=== PATIENT | male | born 1945 | race Caucasian/White ===

== ENCOUNTER 2017-09-30 23:46 | Inpatient (IN) | payer OTHER, MEDICARE ==
[~2017-09-30] VITALS: Ht 172.7 cm; Wt 94.0 kg
[~2017-09-30 23:46] MED LIST: ALLO100T PO; ALPR-304 PO; BUPR100T16 PO; CALC-7 PO; CELE-193 PO; CHOL2000 PO; CLOP75TA35 PO; FURO40TA4 PO; GLUC-183 PO; HYDR-569 PO; LOP25T PO; METH-603 PO; NIAC500T81 PO; NORCO10T PO; OSC500T PO; PANT40TA39 PO; POTA10TA15 PO; PSYL0.524 PO; TRAZ-91 PO; [UNRECOGNIZED DRUG - CODE] PO
[2017-10-01 02:05] LABS: CLARITY,URINE Clear (Clear); COLOR,URINE Yellow (Yellow); GLUCOSE, URINE Negative (Neg); KETONES,URINE Negative (Neg); LEUKOCYTE ESTERASE ,URINE Negative (Neg); NITRITES, URINE Negative (Neg); OCCULT BLOOD,URINE Small (Neg); PROTEIN,URINE Negative (Neg); UROBILINOGEN,URINE 0.2 E.U/dL (0.2-1.0)
[2017-10-01 02:11] LABS: BACTERIA,URINE NONE SEEN /HPF (Neg); SQUAMOUS EPITHELIAL CELL,UR FEW /LPF (FEW); UA COLLECTION TYPE STRAIGHT CATH; WBC,URINE NONE SEEN /HPF (0-4)
[2017-10-01 02:16] LABS: HEMOGLOBIN 14.5 g/dl (14.0-17.9); MONOCYTES # (AUTO) 0.7 X10'3 (0-0.9); RED CELL DISTRIBUTION WIDTH 13.4 % (11.5-14.5)
[2017-10-01 02:19] LABS: PARTIAL THROMBOPLASTIN TIME 25 SECONDS (22-32); PROTHROMBIN TIME 10.6 SECONDS (9.0-12.0)
[2017-10-01 02:22] LABS: ALANINE AMINOTRANSFERASE 47 U/L (12-78); ALBUMIN 3.6 G/DL (3.4-5.0); ALBUMIN/GLOBULIN RATIO 1.1 (1.1-1.5); ALKALINE PHOSPHATASE 73 IU/L (46-116); ANION GAP 8 (8-16); ASPARTATE AMINO TRANSFERASE 43 U/L (10-37); BILIRUBIN,TOTAL 0.7 MG/DL (0.1-1.0); BLOOD UREA NITROGEN 11 MG/DL (7-18); BUN/CREATININE RATIO 13.3 (5.4-32.0); CALCIUM 9.3 MG/DL (8.5-10.1); CHLORIDE 110 MMOL/L (99-107); CREATININE 0.83 MG/DL (0.60-1.10); GLUCOSE 146 MG/DL (70-104); MAGNESIUM 1.7 MG/DL (1.5-2.4); PHOSPHORUS 1.9 MG/DL (2.3-4.5); POTASSIUM 3.6 MMOL/L (3.5-5.1); SODIUM 147 MMOL/L (135-145); TOTAL CARBON DIOXIDE 28.9 MMOL/L (24-32); TOTAL PROTEIN 6.9 G/DL (6.4-8.2); eGFR > 90 ML/MIN
[2017-10-01 02:25] LABS: ACETAMINOPHEN < 2.0 UG/ML (10-30)
[2017-10-01 02:29] LABS: BASOPHILS # (AUTO) 0.1 X10'3 (0-0.2); BASOPHILS % (AUTO) 0.8 % (0-1); EOSINOPHILS % (AUTO) 0.1 % (0-6); HEMATOCRIT 43.3 % (42.0-52.0); LYMPHOCYTES # (AUTO) 0.6 X10'3 (1.1-4.8); MEAN CORPUSCULAR HEMOGLOBIN 33.8 PG (27.0-31.0); MEAN CORPUSCULAR HGB CONC 33.4 % (33.0-36.5); MEAN CORPUSCULAR VOLUME 101.2 FL (78-98); MEAN PLATELET VOLUME 8.1 FL (7.4-10.4); MONOCYTES % (AUTO) 5.7 % (2-12); NEUTROPHILS # (AUTO) 11.3 X10'3 (1.8-7.7); NEUTROPHILS % (AUTO) 88.4 % (42-75); PLATELET COUNT 175 X10'3 (140-440); RED BLOOD COUNT 4.28 X10'6 (4.70-6.10); WHITE BLOOD COUNT 12.7 X10'3 (4.5-11.0)
[2017-10-01 02:37] LABS: URINE AMPHETAMINE SCREEN NEGATIVE (Neg); URINE BARBITUATE SCREEN NEGATIVE (Neg); URINE BENZODIAZEPINES SCREEN POSITIVE (Neg); URINE CANNABINOID SCREEN NEGATIVE (Neg); URINE COCAINE SCREEN NEGATIVE (Neg); URINE METHADONE SCREEN NEGATIVE (Neg); URINE OPIATE SCREEN POSITIVE (Neg); URINE PHENCYCLIDINE SCREEN NEGATIVE (Neg)
[2017-10-01] MEDS ORDERED: CEPH-572 PO (03:13)
[2017-10-01] MEDS ORDERED: MAGN400C PO (03:13)
[2017-10-01] MEDS ORDERED: GABA-532 PO (03:13)
[2017-10-01] MEDS ORDERED: FISH12002 PO (03:13)
[2017-10-01] MEDS ORDERED: HYDR2TAB28 PO (03:13)
[2017-10-01] MEDS ORDERED: BACL20TA PO (03:13)
[2017-10-01] MEDS ORDERED: SERT25TA PO (03:13)
[2017-10-01] MEDS ORDERED: LORazepam 2 mg/ml vial IV ONE ×4 (03:25→13:25)
[2017-10-01] MEDS ORDERED: potassium Cl 40MEQ/NS 500ml 500 ML IV PRN ×2 (04:00)
[2017-10-01] MEDS ORDERED: potassium Cl 20 mEq SR tablet PO PRN ×2 (04:00)
[2017-10-01] MEDS ORDERED: ipratropium/albuterol 3ml nebule NEB PRN (04:00)
[2017-10-01] MEDS ORDERED: magnesium hydroxide 30ml (MOM) UD suspension PO PRN (04:00)
[2017-10-01] MEDS ORDERED: mag hydrox/Alum hydrox/simeth 30ml oral suspension PO PRN (04:00)
[2017-10-01] MEDS ORDERED: albuterol 2.5 MG/3 ML nebule NEB PRN (04:00)
[2017-10-01] MEDS ORDERED: ondansetron/PF 4mg/2ml inj IV PRN (04:00)
[2017-10-01] MEDS: normal saline 1000ml 1,000 ML IV SCH ×2 (04:38→15:46)
[2017-10-01] MEDS ORDERED: thiamine 100mg/ml 2ml inj. IV ONE ×2 (05:25→13:25)
[2017-10-01] MEDS ORDERED: haloperidol lactate 5mg/ml inj IM PRN (05:25)
[2017-10-01] MEDS ORDERED: dextrose 50%-water 50ml dispensing syringe IV PRN (05:25)
[2017-10-01] MEDS ORDERED: haloperidol 5mg tablet PO PRN (05:25)
[2017-10-01] MEDS: LORazepam 2 mg/ml vial IV PRN ×5 (05:42→14:58)
[2017-10-01] MEDS: calcium carbonate/vitamin D3 tablet PO SCH ×4 (07:00→20:52)
[2017-10-01] MEDS: lactobacillus rhamnosus 10,000 MMU CELLS/CAPSULE PO SCH ×2 (07:30→17:30)
[2017-10-01] MEDS: buPROPion 75mg tablet PO SCH (08:00)
[2017-10-01] MEDS: magnesium oxide 400mg tablet PO SCH (08:00)
[2017-10-01] MEDS ORDERED: gabapentin 300mg capsule PO SCH (08:00)
[2017-10-01] MEDS: potassium Cl 20 mEq SR tablet PO SCH (08:00)
[2017-10-01] MEDS ORDERED: baclofen 10mg tablet PO SCH (08:00)
[2017-10-01] MEDS: metoprolol tartrate 25mg tablet PO SCH ×2 (08:00→20:00)
[2017-10-01] MEDS ORDERED: levoFLOXACIN-Levaquin 500mg/D5 100 ML IV SCH (08:00)
[2017-10-01] MEDS: pantoprazole 40mg Tablet.DR PO SCH (08:00)
[2017-10-01] MEDS: allopurinol 100mg tablet PO SCH (08:00)
[2017-10-01] MEDS: sertraline 50mg tablet PO SCH (08:00)
[2017-10-01] MEDS: clopidogrel 75mg tablet PO SCH (08:00)
[2017-10-01] MEDS ORDERED: heparin, porcine 5000 units/ml vial SQ SCH (08:00)
[2017-10-01] MEDS: calcium carbonate 500mg tablet PO SCH ×4 (08:00→20:52)
[2017-10-01] MEDS ORDERED: ALPRAZolam 0.25mg tablet PO SCH (08:00)
[2017-10-01] MEDS ORDERED: furosemide 40mg tablet PO SCH (08:00)
[2017-10-01] MEDS: K and/or MAG REPLACEMENT MC SCH (08:00)
[2017-10-01] MEDS: heparin, porcine 5000 units/ml vial SQ SCH ×2 (08:27→19:34)
[2017-10-01] MEDS ORDERED: furosemide 20 MG/2 ML vial IV SCH (08:30)
[2017-10-01] MEDS ORDERED: haloperidol lactate 5mg/ml inj IM ONE (13:25)
[2017-10-01] MEDS ORDERED: folic acid 1mg/0.2ml inj IV ONE (13:25)
[2017-10-01 15:00] LABS: BASOPHILS # (AUTO) 0.1 X10'3 (0-0.2); BASOPHILS % (AUTO) 0.3 % (0-1); EOSINOPHILS % (AUTO) 0 % (0-6); HEMATOCRIT 45.1 % (42.0-52.0); HEMOGLOBIN 15.2 g/dl (14.0-17.9); LYMPHOCYTES # (AUTO) 0.9 X10'3 (1.1-4.8); LYMPHOCYTES % (AUTO) 3.7 % (21-51); MEAN CORPUSCULAR HEMOGLOBIN 34.3 PG (27.0-31.0); MEAN CORPUSCULAR HGB CONC 33.7 % (33.0-36.5); MEAN CORPUSCULAR VOLUME 101.9 FL (78-98); MEAN PLATELET VOLUME 7.6 FL (7.4-10.4); MONOCYTES # (AUTO) 0.7 X10'3 (0-0.9); MONOCYTES % (AUTO) 2.9 % (2-12); NEUTROPHILS # (AUTO) 22.1 X10'3 (1.8-7.7); NEUTROPHILS % (AUTO) 93.1 % (42-75); PLATELET COUNT 193 X10'3 (140-440); RED BLOOD COUNT 4.42 X10'6 (4.70-6.10); RED CELL DISTRIBUTION WIDTH 14.1 % (11.5-14.5); WHITE BLOOD COUNT 23.7 X10'3 (4.5-11.0)
[2017-10-01 15:17] LABS: ALANINE AMINOTRANSFERASE 52 U/L (12-78); ALBUMIN 3.9 G/DL (3.4-5.0); ALKALINE PHOSPHATASE 73 IU/L (46-116); ANION GAP 13 (8-16); ASPARTATE AMINO TRANSFERASE 63 U/L (10-37); BILIRUBIN,TOTAL 1.1 MG/DL (0.1-1.0); BLOOD UREA NITROGEN 10 MG/DL (7-18); BUN/CREATININE RATIO 8.5 (5.4-32.0); CALCIUM 9.6 MG/DL (8.5-10.1); CHLORIDE 104 MMOL/L (99-107); CREATININE 1.17 MG/DL (0.60-1.10); GLUCOSE 133 MG/DL (70-104); POTASSIUM 3.1 MMOL/L (3.5-5.1); SODIUM 144 MMOL/L (135-145); TOTAL CARBON DIOXIDE 27.2 MMOL/L (24-32); TOTAL PROTEIN 7.7 G/DL (6.4-8.2); eGFR 61 ML/MIN
[2017-10-01 15:21] LABS: PLATELET ESTIMATE NORMAL; TOTAL CELLS COUNTED 100; TOXIC GRANULATION 1+
[2017-10-01 15:27] LABS: CREATINE KINASE 1347 U/L (39-308); LIPASE 53 U/L (73-393); MAGNESIUM 1.6 MG/DL (1.5-2.4); TROPONIN I < 0.04 NG/ML (0.0-0.05)
[2017-10-01] MEDS ORDERED: magnesium 2GM in 50ml NS 50 ML IV ONE (15:53)
[2017-10-01] MEDS ORDERED: potassium 10mEq/100ml NS w/LIDOcaine (10mg/bag) IV ONE (15:55)
[2017-10-01] MEDS ORDERED: succinylcholine 20mg/ml inj IV ONE (15:55)
[2017-10-01] MEDS ORDERED: propofol 1000mg/100ml bottle 100 ML IV ONE (15:55)
[2017-10-01] MEDS ORDERED: etomidate 2mg/ml inj. IV ONE (15:55)
[2017-10-01] MEDS ORDERED: MIDAZolam 5mg/ml 2ml vial IV ONE (16:30)
[2017-10-01] MEDS ORDERED: normal saline 1000ML IV soln IVB ONE (16:30)
[2017-10-01 16:56] LABS: ABG BASE EXCESS -2.2 mmol/L (-2.0-3.0); ABG HCO3 21.2 mmol/L (22.0-26.0); ABG OXYGEN SATURATION 99.1 % (95-98); ABG PCO2 (T) 32.5 mmHg (35.0-48.0); ABG PH (T) 7.432 (7.350-7.450); ABG PO2 (T) 224.1 mmHg (83-108); FCOHb 0.4 % (0.5-1.5); FMetHb 0.2 % (0.3-1.12); FO2Hb 98.5 % (94-100); MINUTE VOLUME 12 L/min; PEEP 5 cm H2O; RESPIRATORY RATE 14 b/min; RESPIRATORY RATE (OBSERVED) 23 b/min; TIDAL VOLUME 500 mL; TOTAL HEMOGLOBIN 14.4 G/dl (14.0-18.0)
[2017-10-01] MEDS: midazolam 100mg in NS 100ml 100 ML IV PRN ×2 (17:29→17:33)
[2017-10-01 19:00] VITALS: BP 136/76
[2017-10-01] MEDS: piperacillin/tazo 4.5gm/100ml 100 ML IV SCH (19:00)
[2017-10-01] MEDS ORDERED: LIDOcaine 1% 30ml vial 5 ML in potassium Cl 40MEQ/NS 500ml 500 ML IV ONE (19:40)
[2017-10-01] MEDS: FENTANYL-0.9 % NACL/PF 100 ML IV PRN (19:56)
[2017-10-01 20:00] VITALS: BP 132/65
[2017-10-01 21:00] VITALS: BP 131/66
[2017-10-01 22:00] VITALS: BP 119/66
[2017-10-01 23:00] VITALS: BP 116/66
[2017-10-02] VITALS (24 sets, daily range): BP systolic 82–135; BP diastolic 47–70
[2017-10-02] MEDS: FENTANYL-0.9 % NACL/PF 100 ML IV PRN ×3 (00:15→16:28)
[2017-10-02] MEDS: midazolam 100mg in NS 100ml 100 ML IV PRN (00:15)
[2017-10-02] MEDS: piperacillin/tazo 4.5gm/100ml 100 ML IV SCH ×4 (00:16→23:29)
[2017-10-02] MEDS ORDERED: furosemide 20 MG/2 ML vial IV ONE (00:20)
[2017-10-02 03:56] LABS: ABG BASE EXCESS -0.6 mmol/L (-2.0-3.0); ABG HCO3 23.6 mmol/L (22.0-26.0); ABG OXYGEN SATURATION 94.9 % (95-98); ABG PCO2 (T) 37.6 mmHg (35.0-48.0); ABG PH (T) 7.416 (7.350-7.450); ABG PO2 (T) 73.3 mmHg (83-108); ALLEN'S TEST Positive; FCOHb 0.4 % (0.5-1.5); FMetHb 0.3 % (0.3-1.12); FO2Hb 94.2 % (94-100); MINUTE VOLUME 8 L/min; PEEP 5 cm H2O; RESPIRATORY RATE 14 b/min; RESPIRATORY RATE (OBSERVED) 14 b/min; TIDAL VOLUME 500 mL; TOTAL HEMOGLOBIN 12.7 G/dl (14.0-18.0)
[2017-10-02] MEDS ORDERED: Potassium Cl inj 20 MEQ in normal saline 1000ml 1,000 ML IV SCH (03:57)
[2017-10-02 04:49] LABS: BASOPHILS % (AUTO) 0.1 % (0-1); EOSINOPHILS % (AUTO) 0.1 % (0-6); HEMATOCRIT 38.5 % (42.0-52.0); LYMPHOCYTES # (AUTO) 1.1 X10'3 (1.1-4.8); LYMPHOCYTES % (AUTO) 7.3 % (21-51); MEAN CORPUSCULAR HEMOGLOBIN 34.4 PG (27.0-31.0); MEAN CORPUSCULAR HGB CONC 33.7 % (33.0-36.5); MEAN CORPUSCULAR VOLUME 102.2 FL (78-98); MEAN PLATELET VOLUME 7.7 FL (7.4-10.4); MONOCYTES % (AUTO) 6.9 % (2-12); NEUTROPHILS # (AUTO) 13.1 X10'3 (1.8-7.7); NEUTROPHILS % (AUTO) 85.6 % (42-75); PLATELET COUNT 148 X10'3 (140-440); RED BLOOD COUNT 3.77 X10'6 (4.70-6.10); RED CELL DISTRIBUTION WIDTH 14.6 % (11.5-14.5); WHITE BLOOD COUNT 15.3 X10'3 (4.5-11.0)
[2017-10-02] MEDS: calcium carbonate/vitamin D3 tablet PO SCH ×4 (07:00→19:53)
[2017-10-02 07:12] LABS: ALBUMIN 3.2 G/DL (3.4-5.0); ANION GAP 9 (8-16); BLOOD UREA NITROGEN 15 MG/DL (7-18); BUN/CREATININE RATIO 15.8 (5.4-32.0); CALCIUM 8.6 MG/DL (8.5-10.1); CHLORIDE 112 MMOL/L (99-107); CHOL/HDL RATIO 2.5 (0.00-4.99); CHOLESTEROL 146 MG/DL (0-200); CREATININE 0.95 MG/DL (0.60-1.10); GLUCOSE 100 MG/DL (70-104); HDL CHOLESTEROL 59 MG/DL (35-60); LDL CHOLESTEROL 79 MG/DL (50-100); MAGNESIUM 2.3 MG/DL (1.5-2.4); POTASSIUM 3.3 MMOL/L (3.5-5.1); SODIUM 148 MMOL/L (135-145); TOTAL CARBON DIOXIDE 26.6 MMOL/L (24-32); TRIGLYCERIDES 98 MG/DL (20-135); eGFR 78 ML/MIN
[2017-10-02] MEDS: lactobacillus rhamnosus 10,000 MMU CELLS/CAPSULE PO SCH ×2 (07:30→14:36)
[2017-10-02] MEDS: allopurinol 100mg tablet PO SCH (07:54)
[2017-10-02] MEDS: metoprolol tartrate 25mg tablet PO SCH ×2 (08:00→19:53)
[2017-10-02] MEDS: magnesium oxide 400mg tablet PO SCH (08:00)
[2017-10-02] MEDS: K and/or MAG REPLACEMENT MC SCH (08:00)
[2017-10-02] MEDS: calcium carbonate 500mg tablet PO SCH ×4 (08:00→19:53)
[2017-10-02] MEDS: potassium Cl 20 mEq SR tablet PO SCH (08:00)
[2017-10-02] MEDS: potassium cl 20mEq in 1/2 NS 1,000 ML IV SCH ×3 (08:30→19:50)
[2017-10-02 08:51] LABS: CREATINE KINASE 1148 U/L (39-308)
[2017-10-02] MEDS ORDERED: diphenhydrAMINE 50 mg/ml inj IM ONE (09:10)
[2017-10-02] MEDS ORDERED: OLANZapine **IM** 10 mg inj. IM ONE (09:10)
[2017-10-02] MEDS: heparin, porcine 5000 units/ml vial SQ SCH ×2 (09:44→19:50)
[2017-10-02] MEDS: clopidogrel 75mg tablet PO SCH (09:45)
[2017-10-02] MEDS: pantoprazole 40mg Tablet.DR PO SCH (09:45)
[2017-10-02] MEDS: sertraline 50mg tablet PO SCH (09:46)
[2017-10-02] MEDS: buPROPion 75mg tablet PO SCH (09:53)
[2017-10-02] MEDS ORDERED: charcoal/sorbitol 50gm/240ml suspension PO ONE (11:00)
[2017-10-02] MEDS ORDERED: NORepinephrine 8mg/ 250ml NS 250 ML IV SCH (19:30)
[2017-10-02] MEDS: acetaminophen 325mg tablet PO PRN (21:39)
[2017-10-03] VITALS (24 sets, daily range): BP systolic 103–156; BP diastolic 51–86
[2017-10-03 03:26] LABS: ABG BASE EXCESS -1.2 mmol/L (-2.0-3.0); ABG HCO3 22.7 mmol/L (22.0-26.0); ABG PCO2 (T) 36.9 mmHg (35.0-48.0); ABG PH (T) 7.411 (7.350-7.450); ABG PO2 (T) 82.7 mmHg (83-108); ALLEN'S TEST Positive; FCOHb 0.4 % (0.5-1.5); FMetHb 0.1 % (0.3-1.12); FO2Hb 95.5 % (94-100); MINUTE VOLUME 11 L/min; PATIENT TEMPERATURE 37.9; PEEP 5 cm H2O; RESPIRATORY RATE 14 b/min; RESPIRATORY RATE (OBSERVED) 18 b/min; TIDAL VOLUME 500 mL; TOTAL HEMOGLOBIN 12.4 G/dl (14.0-18.0)
[2017-10-03] MEDS: potassium cl 20mEq in 1/2 NS 1,000 ML IV SCH ×4 (04:26→19:48)
[2017-10-03] MEDS: LORazepam 1 MG tablet PO PRN ×2 (05:19→23:32)
[2017-10-03 05:27] LABS: BASOPHILS % (AUTO) 0.2 % (0-1); EOSINOPHILS # (AUTO) 0.1 X10'3 (0-0.9); EOSINOPHILS % (AUTO) 0.6 % (0-6); HEMATOCRIT 35.3 % (42.0-52.0); HEMOGLOBIN 11.9 g/dl (14.0-17.9); LYMPHOCYTES # (AUTO) 1.2 X10'3 (1.1-4.8); MEAN CORPUSCULAR HEMOGLOBIN 34.5 PG (27.0-31.0); MEAN CORPUSCULAR HGB CONC 33.7 % (33.0-36.5); MEAN CORPUSCULAR VOLUME 102.3 FL (78-98); MEAN PLATELET VOLUME 7.4 FL (7.4-10.4); MONOCYTES # (AUTO) 0.8 X10'3 (0-0.9); MONOCYTES % (AUTO) 7.8 % (2-12); NEUTROPHILS # (AUTO) 8.7 X10'3 (1.8-7.7); NEUTROPHILS % (AUTO) 80.4 % (42-75); PLATELET COUNT 161 X10'3 (140-440); RED BLOOD COUNT 3.45 X10'6 (4.70-6.10); RED CELL DISTRIBUTION WIDTH 14.4 % (11.5-14.5); WHITE BLOOD COUNT 10.9 X10'3 (4.5-11.0)
[2017-10-03] MEDS: LORazepam 2 mg/ml vial IV PRN ×3 (05:30→23:12)
[2017-10-03 06:03] LABS: ALBUMIN 2.6 G/DL (3.4-5.0); ANION GAP 8 (8-16); BLOOD UREA NITROGEN 16 MG/DL (7-18); BUN/CREATININE RATIO 23.2 (5.4-32.0); CALCIUM 8.3 MG/DL (8.5-10.1); CHLORIDE 112 MMOL/L (99-107); CREATININE 0.69 MG/DL (0.60-1.10); GLUCOSE 120 MG/DL (70-104); MAGNESIUM 1.8 MG/DL (1.5-2.4); PHOSPHORUS 1.8 MG/DL (2.3-4.5); POTASSIUM 3.8 MMOL/L (3.5-5.1); PREALBUMIN 15.2 MG/DL (19-36); SODIUM 144 MMOL/L (135-145); TOTAL CARBON DIOXIDE 24.5 MMOL/L (24-32); eGFR > 90 ML/MIN
[2017-10-03] MEDS: FENTANYL-0.9 % NACL/PF 100 ML IV PRN (07:05)
[2017-10-03] MEDS: piperacillin/tazo 4.5gm/100ml 100 ML IV SCH ×3 (08:00→23:12)
[2017-10-03] MEDS: K and/or MAG REPLACEMENT MC SCH (08:00)
[2017-10-03] MEDS: clopidogrel 75mg tablet PO SCH (09:13)
[2017-10-03] MEDS: lactobacillus rhamnosus 10,000 MMU CELLS/CAPSULE PO SCH ×2 (09:13→16:16)
[2017-10-03] MEDS: calcium carbonate/vitamin D3 tablet PO SCH ×4 (09:13→19:54)
[2017-10-03] MEDS: metoprolol tartrate 25mg tablet PO SCH ×2 (09:14→19:47)
[2017-10-03] MEDS: allopurinol 100mg tablet PO SCH (09:14)
[2017-10-03] MEDS: buPROPion 75mg tablet PO SCH (09:14)
[2017-10-03] MEDS: pantoprazole 40mg Tablet.DR PO SCH (09:14)
[2017-10-03] MEDS: heparin, porcine 5000 units/ml vial SQ SCH ×2 (09:15→19:48)
[2017-10-03] MEDS: sertraline 50mg tablet PO SCH (09:15)
[2017-10-03] MEDS: calcium carbonate 500mg tablet PO SCH ×4 (09:15→19:54)
[2017-10-03] MEDS: potassium Cl 20 mEq SR tablet PO SCH (09:15)
[2017-10-03] MEDS: magnesium oxide 400mg tablet PO SCH (09:18)
[2017-10-03] MEDS: HYDROmorphone 2mg tablet PO PRN ×3 (13:45→23:33)
[2017-10-03] MEDS: acetaminophen 325mg tablet PO PRN ×2 (16:16→23:33)
[2017-10-04] VITALS (21 sets, daily range): BP systolic 123–167; BP diastolic 58–90
[2017-10-04] MEDS: LORazepam 2 mg/ml vial IV PRN ×4 (00:07→22:25)
[2017-10-04] MEDS: potassium cl 20mEq in 1/2 NS 1,000 ML IV SCH (01:33)
[2017-10-04 06:47] LABS: BASOPHILS % (AUTO) 0.2 % (0-1); EOSINOPHILS # (AUTO) 0.2 X10'3 (0-0.9); EOSINOPHILS % (AUTO) 2.1 % (0-6); HEMATOCRIT 37.2 % (42.0-52.0); HEMOGLOBIN 12.3 g/dl (14.0-17.9); LYMPHOCYTES # (AUTO) 1.2 X10'3 (1.1-4.8); LYMPHOCYTES % (AUTO) 10.4 % (21-51); MEAN CORPUSCULAR HEMOGLOBIN 34.2 PG (27.0-31.0); MEAN CORPUSCULAR VOLUME 103.5 FL (78-98); MEAN PLATELET VOLUME 7.9 FL (7.4-10.4); MONOCYTES % (AUTO) 9.4 % (2-12); NEUTROPHILS # (AUTO) 8.7 X10'3 (1.8-7.7); NEUTROPHILS % (AUTO) 77.9 % (42-75); PLATELET COUNT 155 X10'3 (140-440); RED CELL DISTRIBUTION WIDTH 14.1 % (11.5-14.5); WHITE BLOOD COUNT 11.1 X10'3 (4.5-11.0)
[2017-10-04 06:55] LABS: ALBUMIN 2.6 G/DL (3.4-5.0); ANION GAP 7 (8-16); BLOOD UREA NITROGEN 11 MG/DL (7-18); BUN/CREATININE RATIO 17.5 (5.4-32.0); CALCIUM 8.8 MG/DL (8.5-10.1); CHLORIDE 110 MMOL/L (99-107); CREATININE 0.63 MG/DL (0.60-1.10); GLUCOSE 110 MG/DL (70-104); POTASSIUM 3.6 MMOL/L (3.5-5.1); SODIUM 143 MMOL/L (135-145); TOTAL CARBON DIOXIDE 26.4 MMOL/L (24-32); eGFR > 90 ML/MIN
[2017-10-04] MEDS: K and/or MAG REPLACEMENT MC SCH (08:00)
[2017-10-04] MEDS: buPROPion 75mg tablet PO SCH (08:22)
[2017-10-04] MEDS: sertraline 50mg tablet PO SCH (08:22)
[2017-10-04] MEDS: HYDROmorphone 2mg tablet PO PRN ×2 (08:23→20:28)
[2017-10-04] MEDS: lactobacillus rhamnosus 10,000 MMU CELLS/CAPSULE PO SCH ×2 (08:24→20:24)
[2017-10-04] MEDS: calcium carbonate 500mg tablet PO SCH ×4 (08:24→22:29)
[2017-10-04] MEDS: metoprolol tartrate 25mg tablet PO SCH ×2 (08:24→20:25)
[2017-10-04] MEDS: allopurinol 100mg tablet PO SCH (08:24)
[2017-10-04] MEDS: magnesium oxide 400mg tablet PO SCH (08:24)
[2017-10-04] MEDS: clopidogrel 75mg tablet PO SCH (08:24)
[2017-10-04] MEDS: heparin, porcine 5000 units/ml vial SQ SCH ×2 (08:25→20:24)
[2017-10-04] MEDS: piperacillin/tazo 4.5gm/100ml 100 ML IV SCH ×2 (08:26→17:16)
[2017-10-04] MEDS: calcium carbonate/vitamin D3 tablet PO SCH ×3 (09:00→20:24)
[2017-10-04] MEDS ORDERED: HYDROmorphone 2mg tablet PO PRN (10:50)
[2017-10-04] MEDS: pantoprazole 40 MG vial IV SCH (12:59)
[2017-10-04] MEDS: potassium Cl oral solution 20 MEQ/15 ML PO SCH (12:59)
[2017-10-04] MEDS: acetaminophen 325mg tablet PO PRN (22:29)
[2017-10-05] VITALS (19 sets, daily range): BP systolic 110–165; BP diastolic 66–89
[2017-10-05] MEDS: piperacillin/tazo 4.5gm/100ml 100 ML IV SCH ×3 (00:43→16:29)
[2017-10-05] MEDS ORDERED: LORazepam 1 MG tablet PO PRN (05:25)
[2017-10-05] MEDS ORDERED: LORazepam 2 mg/ml vial IV PRN (05:25)
[2017-10-05] MEDS: acetaminophen 325mg tablet PO PRN ×3 (05:37→20:36)
[2017-10-05 05:39] LABS: BASOPHILS # (AUTO) 0.1 X10'3 (0-0.2); BASOPHILS % (AUTO) 0.8 % (0-1); EOSINOPHILS # (AUTO) 0.1 X10'3 (0-0.9); EOSINOPHILS % (AUTO) 0.7 % (0-6); HEMATOCRIT 35.8 % (42.0-52.0); HEMOGLOBIN 12.3 g/dl (14.0-17.9); LYMPHOCYTES # (AUTO) 0.9 X10'3 (1.1-4.8); LYMPHOCYTES % (AUTO) 6.7 % (21-51); MEAN CORPUSCULAR HEMOGLOBIN 34.7 PG (27.0-31.0); MEAN CORPUSCULAR HGB CONC 34.2 % (33.0-36.5); MEAN CORPUSCULAR VOLUME 101.3 FL (78-98); MEAN PLATELET VOLUME 8.1 FL (7.4-10.4); MONOCYTES # (AUTO) 1.3 X10'3 (0-0.9); MONOCYTES % (AUTO) 10.1 % (2-12); NEUTROPHILS # (AUTO) 10.6 X10'3 (1.8-7.7); NEUTROPHILS % (AUTO) 81.7 % (42-75); PLATELET COUNT 179 X10'3 (140-440); RED BLOOD COUNT 3.54 X10'6 (4.70-6.10); RED CELL DISTRIBUTION WIDTH 14.2 % (11.5-14.5); WHITE BLOOD COUNT 12.9 X10'3 (4.5-11.0)
[2017-10-05 06:09] LABS: ALBUMIN 2.8 G/DL (3.4-5.0); ANION GAP 10 (8-16); BLOOD UREA NITROGEN 12 MG/DL (7-18); BUN/CREATININE RATIO 16.7 (5.4-32.0); CALCIUM 9.4 MG/DL (8.5-10.1); CHLORIDE 104 MMOL/L (99-107); CREATININE 0.72 MG/DL (0.60-1.10); GLUCOSE 121 MG/DL (70-104); POTASSIUM 3.4 MMOL/L (3.5-5.1); SODIUM 141 MMOL/L (135-145); TOTAL CARBON DIOXIDE 26.6 MMOL/L (24-32); eGFR > 90 ML/MIN
[2017-10-05] MEDS: lactobacillus rhamnosus 10,000 MMU CELLS/CAPSULE PO SCH ×2 (07:31→16:39)
[2017-10-05] MEDS: sertraline 50mg tablet PO SCH (07:31)
[2017-10-05] MEDS: buPROPion 75mg tablet PO SCH (07:31)
[2017-10-05] MEDS: calcium carbonate/vitamin D3 tablet PO SCH ×4 (07:31→20:37)
[2017-10-05] MEDS: pantoprazole 40 MG vial IV SCH (07:31)
[2017-10-05] MEDS: clopidogrel 75mg tablet PO SCH (07:31)
[2017-10-05] MEDS: allopurinol 100mg tablet PO SCH (07:31)
[2017-10-05] MEDS: magnesium oxide 400mg tablet PO SCH (07:31)
[2017-10-05] MEDS: calcium carbonate 500mg tablet PO SCH ×4 (07:32→20:37)
[2017-10-05] MEDS: potassium Cl oral solution 20 MEQ/15 ML PO SCH (07:32)
[2017-10-05] MEDS: metoprolol tartrate 25mg tablet PO SCH ×2 (07:32→20:32)
[2017-10-05] MEDS: heparin, porcine 5000 units/ml vial SQ SCH ×2 (07:33→20:36)
[2017-10-05] MEDS: HYDROmorphone 2mg tablet PO PRN ×2 (07:47→16:39)
[2017-10-05] MEDS: K and/or MAG REPLACEMENT MC SCH (08:00)
[2017-10-05] MEDS ORDERED: pantoprazole 40mg Tablet.DR PO SCH (08:00)
[2017-10-06] MEDS: piperacillin/tazo 4.5gm/100ml 100 ML IV SCH ×2 (00:56→08:08)
[2017-10-06] MEDS: HYDROmorphone 2mg tablet PO PRN ×2 (00:57→11:34)
[2017-10-06 03:00] VITALS: BP 155/78
[2017-10-06 05:26] LABS: BASOPHILS % (AUTO) 0.1 % (0-1); EOSINOPHILS # (AUTO) 0.2 X10'3 (0-0.9); EOSINOPHILS % (AUTO) 2.3 % (0-6); HEMATOCRIT 36.4 % (42.0-52.0); HEMOGLOBIN 12.6 g/dl (14.0-17.9); LYMPHOCYTES # (AUTO) 1.2 X10'3 (1.1-4.8); LYMPHOCYTES % (AUTO) 11.4 % (21-51); MEAN CORPUSCULAR HEMOGLOBIN 34.9 PG (27.0-31.0); MEAN CORPUSCULAR HGB CONC 34.5 % (33.0-36.5); MEAN CORPUSCULAR VOLUME 101.2 FL (78-98); MEAN PLATELET VOLUME 7.8 FL (7.4-10.4); MONOCYTES # (AUTO) 1.1 X10'3 (0-0.9); MONOCYTES % (AUTO) 10.5 % (2-12); NEUTROPHILS % (AUTO) 75.7 % (42-75); PLATELET COUNT 180 X10'3 (140-440); RED CELL DISTRIBUTION WIDTH 13.8 % (11.5-14.5); WHITE BLOOD COUNT 10.6 X10'3 (4.5-11.0)
[2017-10-06 05:40] LABS: ALBUMIN 2.7 G/DL (3.4-5.0); ANION GAP 10 (8-16); BLOOD UREA NITROGEN 17 MG/DL (7-18); BUN/CREATININE RATIO 24.3 (5.4-32.0); CALCIUM 9.3 MG/DL (8.5-10.1); CHLORIDE 107 MMOL/L (99-107); GLUCOSE 99 MG/DL (70-104); POTASSIUM 3.7 MMOL/L (3.5-5.1); PREALBUMIN 11.7 MG/DL (19-36); SODIUM 143 MMOL/L (135-145); eGFR > 90 ML/MIN
[2017-10-06 06:00] VITALS: BP 150/72
[2017-10-06] MEDS: K and/or MAG REPLACEMENT MC SCH (08:00)
[2017-10-06] MEDS: potassium Cl oral solution 20 MEQ/15 ML PO SCH (08:09)
[2017-10-06] MEDS: calcium carbonate 500mg tablet PO SCH ×2 (08:10→12:38)
[2017-10-06] MEDS: calcium carbonate/vitamin D3 tablet PO SCH ×2 (08:10→11:34)
[2017-10-06] MEDS: magnesium oxide 400mg tablet PO SCH (08:10)
[2017-10-06] MEDS: buPROPion 75mg tablet PO SCH (08:10)
[2017-10-06] MEDS: sertraline 50mg tablet PO SCH (08:10)
[2017-10-06] MEDS: allopurinol 100mg tablet PO SCH (08:11)
[2017-10-06] MEDS: metoprolol tartrate 25mg tablet PO SCH (08:11)
[2017-10-06] MEDS: lactobacillus rhamnosus 10,000 MMU CELLS/CAPSULE PO SCH (08:11)
[2017-10-06] MEDS: clopidogrel 75mg tablet PO SCH (08:11)
[2017-10-06] MEDS: heparin, porcine 5000 units/ml vial SQ SCH (08:12)
== END 2017-10-06 15:00 | DRG 208 ==
LOC: ER 23:47 → ED HOLD 10-01 03:57 → EDBEDREQSVC 10-01 16:05 → ICU 2S 10-01 18:39 → PCU 3S 10-05 16:20
PROVIDERS: ADMIT Internal Medicine; ATTEND Internal Medicine
PROC: 5A1945Z Respiratory Ventilation, 24-96 Consecutive Hours (ICD-10-PCS; principal; 2017-10-01)
PROC: 0BH18EZ Insertion of Endotracheal Airway into Trachea, Via Natural or Artificial Opening Endoscopic (ICD-10-PCS; 2017-10-01)
PROC: 5A09357 Assistance with Respiratory Ventilation, Less than 24 Consecutive Hours, Continuous Positive Airway Pressure (ICD-10-PCS; 2017-10-05)
PROC: 5A09357 Assistance with Respiratory Ventilation, Less than 24 Consecutive Hours, Continuous Positive Airway Pressure (ICD-10-PCS; 2017-10-06)
DX: J96.01 Acute respiratory failure with hypoxia (principal); J69.0 Pneumonitis due to inhalation of food and vomit; G93.49 Other encephalopathy; J15.9 Unspecified bacterial pneumonia; M62.82 Rhabdomyolysis; E86.0 Dehydration; G25.3 Myoclonus; E87.6 Hypokalemia; G89.4 Chronic pain syndrome; E78.00 Pure hypercholesterolemia, unspecified; G47.30 Sleep apnea, unspecified; I25.10 Atherosclerotic heart disease of native coronary artery without angina pectoris; K21.9 Gastro-esophageal reflux disease without esophagitis; M10.9 Gout, unspecified; F32.9 Major depressive disorder, single episode, unspecified; F41.9 Anxiety disorder, unspecified; M19.90 Unspecified osteoarthritis, unspecified site; T42.8X5A Adverse effect of antiparkinsonism drugs and other central muscle-tone depressants, initial encounter; Z79.899 Other long term (current) drug therapy; Z79.02 Long term (current) use of antithrombotics/antiplatelets; Z87.11 Personal history of peptic ulcer disease; Y92.89 Other specified places as the place of occurrence of the external cause
CPT/HCPCS: 36415; 36600; 70450; 71010; 80048; 80053; 80061; 80305; 80329; 81001; 82550; 82803; 82948; 83690; 83735; 84100; 84134; 84484; 85018; 85025; 85610; 85730; 87040; 87070; 92616; 93005; 94002; 94003; 94760; 96374; 97110; 97116; 97161; 97530; 99285; A4353; A6212; A6213; A6449; C1758; C9113; J0330; J1200; J1630; J1644; J1940; J1956; J2060; J2250; J2270; J2543; J2704; J3411; J3475; J3480; J3490; J7030

== ENCOUNTER 2018-01-16 10:48 | Outpatient (CLI) | payer MEDICARE, OTHER ==
[~2018-01-16 10:48] MED LIST changes: +BACL20TA PO; -CELE-193 PO; +CEPH-572 PO; -CHOL2000 PO; +FISH12002 PO; +GABA-532 PO; -HYDR-569 PO; +HYDR2TAB28 PO; +MAGN400C PO; -METH-603 PO; -NIAC500T81 PO; -NORCO10T PO; +SERT25TA PO; -[UNRECOGNIZED DRUG - CODE] PO
[2018-01-16 12:37] LABS: BASOPHILS % (AUTO) 0.4 % (0-1); EOSINOPHILS # (AUTO) 0.2 X10'3 (0-0.9); EOSINOPHILS % (AUTO) 2.6 % (0-6); LYMPHOCYTES # (AUTO) 1.5 X10'3 (1.1-4.8); LYMPHOCYTES % (AUTO) 19.1 % (21-51); MEAN CORPUSCULAR HEMOGLOBIN 34.8 PG (27.0-31.0); MEAN CORPUSCULAR HGB CONC 34.7 % (33.0-36.5); MEAN CORPUSCULAR VOLUME 100.1 FL (78-98); MONOCYTES # (AUTO) 0.7 X10'3 (0-0.9); MONOCYTES % (AUTO) 9.3 % (2-12); NEUTROPHILS # (AUTO) 5.3 X10'3 (1.8-7.7); NEUTROPHILS % (AUTO) 68.6 % (42-75); PRE OP HEMATOCRIT 41.3 % (42.0-52.0); PRE OP HEMOGLOBIN 14.3 g/dL (14.0-17.9); PRE OP PLATELET COUNT 177 X10'3 (140-440); RED BLOOD COUNT 4.12 X10'6 (4.70-6.10); RED CELL DISTRIBUTION WIDTH 14.2 % (11.5-14.5)
[2018-01-16 12:51] LABS: ALBUMIN 3.7 G/DL (3.4-5.0); ALBUMIN/GLOBULIN RATIO 1.1 (1.1-1.5); ALKALINE PHOSPHATASE 77 IU/L (46-116); BLOOD UREA NITROGEN 15 MG/DL (7-18); BUN/CREATININE RATIO 15.6 (5.4-32.0); CALCIUM 9.2 MG/DL (8.5-10.1); CHLORIDE 105 MMOL/L (99-107); CREATININE 0.96 MG/DL (0.60-1.10); PRE OP ALT 40 U/L (30-65); PRE OP ANION GAP 8 (8-16); PRE OP AST 27 U/L (10-37); PRE OP BILIRUB, TOTAL 0.4 MG/DL (0.0-1.0); PRE OP GLUCOSE 125 MG/DL (70-104); PRE OP POTASSIUM 4.2 MMOL/L (3.4-5.1); PRE OP SODIUM 143 MMOL/L (135-145); TOTAL CARBON DIOXIDE 29.7 MMOL/L (24-32); TOTAL PROTEIN 7.2 G/DL (6.4-8.2); eGFR 77 ML/MIN
[2018-01-16] MEDS ORDERED: CYCL-1 PO (14:02)
== END 2018-01-16 23:59 | disposition home or self-care (01) ==
LOC: PRE-OP 10:48 → EDSTATUS 01-20 11:00
PROVIDERS: ATTEND Orthopaedic Surgery
DX: Z01.818 Encounter for other preprocedural examination (principal); M19.012 Primary osteoarthritis, left shoulder; M75.122 Complete rotator cuff tear or rupture of left shoulder, not specified as traumatic; M25.512 Pain in left shoulder; R00.1 Bradycardia, unspecified
CPT/HCPCS: 36415; 80053; 85025; 85610; 85730; 87070; 93005

== ENCOUNTER 2018-02-02 12:46 | Outpatient (CLI) | payer OTHER, MEDICARE ==
[~2018-02-02 12:46] MED LIST changes: -BACL20TA PO; +CYCL-1 PO
== END 2018-02-02 23:59 | disposition home or self-care (01) ==
LOC: CARD DIAG 12:46
PROVIDERS: ATTEND Internal Medicine Cardiovascular Disease
DX: I08.0 Rheumatic disorders of both mitral and aortic valves (principal); I25.10 Atherosclerotic heart disease of native coronary artery without angina pectoris; I50.9 Heart failure, unspecified; I11.0 Hypertensive heart disease with heart failure; Z87.891 Personal history of nicotine dependence
CPT/HCPCS: 93306

== ENCOUNTER 2018-05-09 08:51 | Inpatient (IN) | payer MEDICARE, OTHER ==
[2018-05-02 12:33] LABS: BASOPHILS % (AUTO) 0.4 % (0-1); EOSINOPHILS # (AUTO) 0.1 X10'3 (0-0.9); EOSINOPHILS % (AUTO) 1.3 % (0-6); LYMPHOCYTES # (AUTO) 1.5 X10'3 (1.1-4.8); LYMPHOCYTES % (AUTO) 21.4 % (21-51); MEAN CORPUSCULAR HEMOGLOBIN 33.6 PG (27.0-31.0); MEAN CORPUSCULAR HGB CONC 34.1 % (33.0-36.5); MEAN CORPUSCULAR VOLUME 98.4 FL (78-98); MONOCYTES # (AUTO) 0.6 X10'3 (0-0.9); MONOCYTES % (AUTO) 8.6 % (2-12); NEUTROPHILS # (AUTO) 4.7 X10'3 (1.8-7.7); NEUTROPHILS % (AUTO) 68.3 % (42-75); PRE OP HEMATOCRIT 40.7 % (42.0-52.0); PRE OP HEMOGLOBIN 13.9 g/dL (14.0-17.9); PRE OP PLATELET COUNT 142 X10'3 (140-440); RED BLOOD COUNT 4.14 X10'6 (4.70-6.10); RED CELL DISTRIBUTION WIDTH 14.5 % (11.5-14.5)
[2018-05-02 12:43] LABS: PRE OP PROTIME 10.3 SECONDS (9.0-12.0)
[2018-05-02 12:48] LABS: ALBUMIN 3.6 G/DL (3.4-5.0); ALBUMIN/GLOBULIN RATIO 1.1 (1.1-1.5); ALKALINE PHOSPHATASE 67 IU/L (46-116); BLOOD UREA NITROGEN 20 MG/DL (7-18); BUN/CREATININE RATIO 20.2 (5.4-32.0); CALCIUM 9.1 MG/DL (8.5-10.1); CHLORIDE 104 MMOL/L (99-107); CREATININE 0.99 MG/DL (0.60-1.10); PRE OP ALT 38 U/L (30-65); PRE OP ANION GAP 8 (8-16); PRE OP AST 22 U/L (10-37); PRE OP BILIRUB, TOTAL 0.3 MG/DL (0.0-1.0); PRE OP GLUCOSE 136 MG/DL (70-104); PRE OP POTASSIUM 3.5 MMOL/L (3.4-5.1); PRE OP SODIUM 141 MMOL/L (135-145); TOTAL CARBON DIOXIDE 29.3 MMOL/L (24-32); TOTAL PROTEIN 6.8 G/DL (6.4-8.2); eGFR 75 ML/MIN
[~2018-05-09] VITALS: Ht 165.1 cm; Wt 91.3 kg
[2018-05-09] VITALS (18 sets, daily range): BP systolic 92–119; BP diastolic 39–68
[~2018-05-09 08:51] MED LIST changes: +Cefazolin 2GM/50ML dext iso,osmotic IVPB IV ONE; +DOCUMENT DATE & TIME OF BETA-BLOCKER PO ONE; -FISH12002 PO; +OMEG-156 PO; +PROC5TAB PO; +TEST2.5G5 TD; +TRAZ-218 PO; -TRAZ-91 PO; +VANCOMYCIN INJ 1000 MG in NORMAL SALINE 250ml IV.SOLN IV ONE; +famotidine 20mg tablet PO ONE; +ringers solution, lacted 1,000 ML IV SCH; +tranexamic acid inj. 900 MG in normal saline 100ml IV soln 91 ML IV ONE
[2018-05-09] MEDS ORDERED: LIDOcaine 1% (10mg/ml) 2ml vial ONE (09:12)
[2018-05-09] MEDS ORDERED: ringers solution, lacted 1,000 ML IV SCH (09:14)
[2018-05-09] MEDS ORDERED: morphine 4 MG/ML inj SYRINge IV PRN ×2 (09:15)
[2018-05-09] MEDS ORDERED: meperidine/PF 25mg/ml syringe IV PRN ×3 (09:15)
[2018-05-09] MEDS ORDERED: ondansetron/PF 4mg/2ml inj IV PRN ×2 (09:15→14:00)
[2018-05-09] MEDS ORDERED: proCHLORperazine 10 MG/2 ml inj IV PRN (09:15)
[2018-05-09] MEDS ORDERED: ROPIVAcaine 0.5% (5mg/ml) 30ml vial ONE ×2 (09:55→11:49)
[2018-05-09] MEDS ORDERED: vancomycin 1,000mg inj ONE (09:55)
[2018-05-09] MEDS ORDERED: ketorolac trometh. 30mg/ml inj. ONE (09:55)
[2018-05-09] MEDS ORDERED: dexamethasone sod phosphate 10mg/ml inj ONE (11:35)
[2018-05-09] MEDS ORDERED: sevoflurane 250ml liquid IH ONE (11:35)
[2018-05-09] MEDS ORDERED: fentaNYL/PF 50MCG/1 ML 2ML syringe ONE (11:48)
[2018-05-09] MEDS ORDERED: midazolam 2 mg/2 ml injection ONE (11:48)
[2018-05-09] MEDS ORDERED: LIDOcaine 1%/PF 5ML 10 MG/ML VIAL ONE (12:02)
[2018-05-09] MEDS ORDERED: propofol inj 20 ML IV ONE (12:02)
[2018-05-09] MEDS ORDERED: ondansetron/PF 4mg/2ml inj ONE (13:25)
[2018-05-09] MEDS ORDERED: MSM PO PRN (14:00)
[2018-05-09] MEDS ORDERED: bisacodyl 10mg suppository rectal RC PRN (14:00)
[2018-05-09] MEDS ORDERED: HYDROmorphone 2mg tablet PO PRN (14:00)
[2018-05-09] MEDS ORDERED: cyclobenzaprine 10mg tablet PO PRN (14:00)
[2018-05-09] MEDS ORDERED: acetaminophen 325mg tablet PO PRN (14:00)
[2018-05-09] MEDS ORDERED: magnesium hydroxide 30ml (MOM) UD suspension PO PRN (14:00)
[2018-05-09] MEDS ORDERED: oxyCODONE IR 5mg (immed. release) tablet PO PRN (14:00)
[2018-05-09] MEDS ORDERED: HYDROmorphone inj. 0.5 MG/0.5 ML DISP.SYRIN IV PRN ×2 (14:00)
[2018-05-09] MEDS ORDERED: CHONDROITIN A PO PRN (14:00)
[2018-05-09] MEDS ORDERED: ALPRAZolam 0.5mg tablet PO PRN (14:00)
[2018-05-09] MEDS ORDERED: diphenhydrAMINE 25mg capsule PO PRN ×2 (14:00)
[2018-05-09] MEDS ORDERED: GLUCOSAMINE PO PRN (14:00)
[2018-05-09] MEDS ORDERED: tranexamic acid inj. 910 MG in normal saline 100ml IV soln 100 ML IV ONE (17:00)
[2018-05-09] MEDS ORDERED: CALCIUM CARBONATE PO SCH (17:00)
[2018-05-09] MEDS ORDERED: VITAMIN D3 PO SCH (17:00)
[2018-05-09] MEDS ORDERED: VIT D PO SCH (17:00)
[2018-05-09] MEDS: potassium cl 20mEq in 1/2 NS 1,000 ML IV SCH (18:44)
[2018-05-09] MEDS: calcium carbonate 500mg tablet PO SCH ×2 (18:45→21:21)
[2018-05-09] MEDS: cephalexin 500mg capsule PO SCH ×2 (18:45→21:22)
[2018-05-09] MEDS: acetaminophen 325mg tablet PO SCH ×2 (18:46→20:00)
[2018-05-09] MEDS: ketorolac tromethamine 15mg/ml inj. IV SCH ×2 (18:48→20:00)
[2018-05-09] MEDS: ceFAZolin 1GM/D5W- ADD-VANTAGE 50 ML IV SCH (19:26)
[2018-05-09] MEDS: buPROPion SR 150mg tablet PO SCH (20:00)
[2018-05-09] MEDS ORDERED: psyllium seed 3.4 gm packet PO PRN (20:00)
[2018-05-09] MEDS: OMEGA-3/DHA/EPA/FISH OIL 1 EACH CAPSULE.DR PO SCH (20:00)
[2018-05-09] MEDS: metoprolol tartrate 12.5mg (1/2 tablet) PO SCH (20:00)
[2018-05-09] MEDS ORDERED: vancomycin/NS 1 GM ADD-VANTAGE 250 ML IV SCH (20:00)
[2018-05-09] MEDS: traZODone 50mg tablet PO SCH (21:00)
[2018-05-09] MEDS ORDERED: gabapentin 300mg capsule PO SCH (21:00)
[2018-05-09] MEDS: gabapentin 300mg capsule PO SCH (21:22)
[2018-05-09] MEDS: sennosides 8.6mg tablet PO SCH (21:25)
[2018-05-10] VITALS (7 sets, daily range): BP systolic 120–140; BP diastolic 45–70
[2018-05-10] MEDS ORDERED: ceFAZolin 1GM/D5W- ADD-VANTAGE 50 ML IV ONE (02:40)
[2018-05-10] MEDS: acetaminophen 325mg tablet PO SCH ×4 (02:42→19:34)
[2018-05-10] MEDS: ketorolac tromethamine 15mg/ml inj. IV SCH ×2 (02:43→09:09)
[2018-05-10] MEDS: ceFAZolin 1GM/D5W- ADD-VANTAGE 50 ML IV SCH (02:50)
[2018-05-10] MEDS: potassium cl 20mEq in 1/2 NS 1,000 ML IV SCH ×4 (05:37→22:28)
[2018-05-10 06:09] LABS: BASOPHILS % (AUTO) 0 % (0-1); EOSINOPHILS % (AUTO) 0 % (0-6); HEMATOCRIT 34.8 % (42.0-52.0); HEMOGLOBIN 11.9 g/dl (14.0-17.9); LYMPHOCYTES # (AUTO) 0.6 X10'3 (1.1-4.8); LYMPHOCYTES % (AUTO) 5.3 % (21-51); MEAN CORPUSCULAR HEMOGLOBIN 33.5 PG (27.0-31.0); MEAN CORPUSCULAR HGB CONC 34.1 % (33.0-36.5); MEAN CORPUSCULAR VOLUME 98.2 FL (78-98); MEAN PLATELET VOLUME 8.1 FL (7.4-10.4); MONOCYTES # (AUTO) 0.8 X10'3 (0-0.9); MONOCYTES % (AUTO) 6.9 % (2-12); NEUTROPHILS # (AUTO) 10.1 X10'3 (1.8-7.7); NEUTROPHILS % (AUTO) 87.8 % (42-75); PLATELET COUNT 136 X10'3 (140-440); RED BLOOD COUNT 3.54 X10'6 (4.70-6.10); RED CELL DISTRIBUTION WIDTH 14.6 % (11.5-14.5); WHITE BLOOD COUNT 11.5 X10'3 (4.5-11.0)
[2018-05-10 06:16] LABS: ANION GAP 5 (8-16); CHLORIDE 108 MMOL/L (99-107); POTASSIUM 3.9 MMOL/L (3.5-5.1); SODIUM 142 MMOL/L (135-145); TOTAL CARBON DIOXIDE 28.7 MMOL/L (24-32)
[2018-05-10] MEDS: OMEGA-3/DHA/EPA/FISH OIL 1 EACH CAPSULE.DR PO SCH ×2 (08:00→19:33)
[2018-05-10] MEDS: furosemide 40mg tablet PO SCH (08:00)
[2018-05-10] MEDS: potassium Cl 20 mEq SR tablet PO SCH (09:10)
[2018-05-10] MEDS: cephalexin 500mg capsule PO SCH ×4 (09:10→20:56)
[2018-05-10] MEDS: metoprolol tartrate 12.5mg (1/2 tablet) PO SCH ×2 (09:16→19:33)
[2018-05-10] MEDS: gabapentin 300mg capsule PO SCH ×3 (09:17→20:56)
[2018-05-10] MEDS: magnesium oxide 400mg tablet PO SCH (09:17)
[2018-05-10] MEDS: calcium carbonate 500mg tablet PO SCH ×4 (09:18→20:56)
[2018-05-10] MEDS: pantoprazole 40mg Tablet.DR PO SCH (09:18)
[2018-05-10] MEDS: clopidogrel 75mg tablet PO SCH (09:18)
[2018-05-10] MEDS: buPROPion SR 150mg tablet PO SCH ×2 (09:19→19:34)
[2018-05-10] MEDS: sertraline 50mg tablet PO SCH (09:21)
[2018-05-10] MEDS: aspirin 325mg tablet PO SCH (09:22)
[2018-05-10] MEDS: allopurinol 100mg tablet PO SCH (09:22)
[2018-05-10] MEDS: oxyCODONE IR 5mg (immed. release) tablet PO PRN ×4 (10:46→22:25)
[2018-05-10] MEDS: lactobacillus rhamnosus 10,000 MMU CELLS/CAPSULE PO SCH (19:33)
[2018-05-10] MEDS: celeCOXIB 100mg capsule PO SCH (19:33)
[2018-05-10] MEDS: traZODone 50mg tablet PO SCH (20:55)
[2018-05-10] MEDS: sennosides 8.6mg tablet PO SCH (20:59)
[2018-05-11] MEDS: oxyCODONE IR 5mg (immed. release) tablet PO PRN ×3 (02:02→09:49)
[2018-05-11] MEDS: acetaminophen 325mg tablet PO SCH ×2 (02:03→08:34)
[2018-05-11 06:00] VITALS: BP 120/57
[2018-05-11 06:55] LABS: BASOPHILS % (AUTO) 0.5 % (0-1); EOSINOPHILS # (AUTO) 0.1 X10'3 (0-0.9); EOSINOPHILS % (AUTO) 0.7 % (0-6); HEMATOCRIT 32.2 % (42.0-52.0); HEMOGLOBIN 10.8 g/dl (14.0-17.9); LYMPHOCYTES # (AUTO) 1.3 X10'3 (1.1-4.8); MEAN CORPUSCULAR HEMOGLOBIN 33.3 PG (27.0-31.0); MEAN CORPUSCULAR HGB CONC 33.6 % (33.0-36.5); MEAN CORPUSCULAR VOLUME 99.2 FL (78-98); MEAN PLATELET VOLUME 7.9 FL (7.4-10.4); MONOCYTES # (AUTO) 0.8 X10'3 (0-0.9); MONOCYTES % (AUTO) 8.9 % (2-12); NEUTROPHILS # (AUTO) 6.6 X10'3 (1.8-7.7); NEUTROPHILS % (AUTO) 74.9 % (42-75); PLATELET COUNT 125 X10'3 (140-440); RED BLOOD COUNT 3.24 X10'6 (4.70-6.10); RED CELL DISTRIBUTION WIDTH 15.6 % (11.5-14.5); WHITE BLOOD COUNT 8.8 X10'3 (4.5-11.0)
[2018-05-11] MEDS: clopidogrel 75mg tablet PO SCH (08:33)
[2018-05-11] MEDS: lactobacillus rhamnosus 10,000 MMU CELLS/CAPSULE PO SCH (08:33)
[2018-05-11] MEDS: pantoprazole 40mg Tablet.DR PO SCH (08:33)
[2018-05-11] MEDS: celeCOXIB 100mg capsule PO SCH (08:33)
[2018-05-11] MEDS: calcium carbonate 500mg tablet PO SCH ×2 (08:33→13:32)
[2018-05-11] MEDS: potassium Cl 20 mEq SR tablet PO SCH (08:33)
[2018-05-11] MEDS: cephalexin 500mg capsule PO SCH ×2 (08:34→13:32)
[2018-05-11] MEDS: aspirin 325mg tablet PO SCH (08:34)
[2018-05-11] MEDS: allopurinol 100mg tablet PO SCH (08:34)
[2018-05-11] MEDS: buPROPion SR 150mg tablet PO SCH (08:35)
[2018-05-11] MEDS: furosemide 40mg tablet PO SCH (08:36)
[2018-05-11] MEDS: metoprolol tartrate 12.5mg (1/2 tablet) PO SCH (08:36)
[2018-05-11] MEDS: magnesium oxide 400mg tablet PO SCH (08:36)
[2018-05-11] MEDS: sertraline 50mg tablet PO SCH (08:36)
[2018-05-11] MEDS: gabapentin 300mg capsule PO SCH ×2 (08:36→13:32)
[2018-05-11] MEDS: OMEGA-3/DHA/EPA/FISH OIL 1 EACH CAPSULE.DR PO SCH (08:36)
[2018-05-11 10:00] VITALS: BP 132/60
[2018-05-11] MEDS ORDERED: acetaminophen 325mg tablet PO PRN (14:00)
== END 2018-05-11 15:50 | disposition home or self-care (01) | DRG 483 ==
LOC: PAS IN 08:51 → EDSTATUS 10:30 → ORTHO 4S 15:30
PROVIDERS: ADMIT Orthopaedic Surgery; ATTEND Orthopaedic Surgery
PROC: 0LS40ZZ Reposition Left Upper Arm Tendon, Open Approach (ICD-10-PCS; 2018-05-09)
PROC: 3E0T3BZ Introduction of Anesthetic Agent into Peripheral Nerves and Plexi, Percutaneous Approach (ICD-10-PCS; 2018-05-09)
PROC: 0RRK00Z Replacement of Left Shoulder Joint with Reverse Ball and Socket Synthetic Substitute, Open Approach (ICD-10-PCS; principal; 2018-05-09 11:35)
PROC: 5A09357 Assistance with Respiratory Ventilation, Less than 24 Consecutive Hours, Continuous Positive Airway Pressure (ICD-10-PCS; 2018-05-10)
PROC: 5A09357 Assistance with Respiratory Ventilation, Less than 24 Consecutive Hours, Continuous Positive Airway Pressure (ICD-10-PCS; 2018-05-11)
DX: M19.012 Primary osteoarthritis, left shoulder (principal); M75.122 Complete rotator cuff tear or rupture of left shoulder, not specified as traumatic; M65.812 Other synovitis and tenosynovitis, left shoulder; G47.30 Sleep apnea, unspecified; F17.200 Nicotine dependence, unspecified, uncomplicated; I25.10 Atherosclerotic heart disease of native coronary artery without angina pectoris; Z95.5 Presence of coronary angioplasty implant and graft; Z88.8 Allergy status to other drugs, medicaments and biological substances; Z79.899 Other long term (current) drug therapy
CPT/HCPCS: 36415; 71046; 80051; 80053; 85025; 85610; 85730; 87070; 97110; 97116; 97161; 97530; A4565; A7000; J0690; J1100; J1885; J2001; J2250; J2405; J2704; J2795; J3010; J3370; J3490; J7030; J7040; J7120

== ENCOUNTER 2021-06-14 01:09 | Inpatient (IN) | payer OTHER, MEDICARE ==
[~2021-06-14] VITALS: Ht 185.4 cm; Wt 93.0 kg
[~2021-06-14 01:09] MED LIST changes: -CALC-7 PO; +CALC-936 PO; +CLOP75TA34 PO; -CLOP75TA35 PO; -Cefazolin 2GM/50ML dext iso,osmotic IVPB IV ONE; -DOCUMENT DATE & TIME OF BETA-BLOCKER PO ONE; -PROC5TAB PO; -TEST2.5G5 TD; -TRAZ-218 PO; +TRAZ-251 PO; -VANCOMYCIN INJ 1000 MG in NORMAL SALINE 250ml IV.SOLN IV ONE; -famotidine 20mg tablet PO ONE; -ringers solution, lacted 1,000 ML IV SCH; -tranexamic acid inj. 900 MG in normal saline 100ml IV soln 91 ML IV ONE
[2021-06-14 02:53] LABS: BASOPHILS # (AUTO) 0.2 X10'3 (0-0.2); EOSINOPHILS % (AUTO) 0 % (0-6); HEMATOCRIT 39.9 % (42.0-52.0); HEMOGLOBIN 13.6 g/dl (14.0-17.9); LYMPHOCYTES # (AUTO) 0.4 X10'3 (1.1-4.8); LYMPHOCYTES % (AUTO) 4.9 % (21-51); MEAN CORPUSCULAR HEMOGLOBIN 34.5 PG (27.0-31.0); MEAN CORPUSCULAR HGB CONC 34.2 g/dL (33.0-36.5); MEAN CORPUSCULAR VOLUME 100.9 FL (78-98); MEAN PLATELET VOLUME 7.9 FL (7.4-10.4); MONOCYTES # (AUTO) 0.1 X10'3 (0-0.9); MONOCYTES % (AUTO) 0.7 % (2-12); NEUTROPHILS # (AUTO) 7.3 X10'3 (1.8-7.7); NEUTROPHILS % (AUTO) 92.4 % (42-75); PLATELET COUNT 308 X10'3 (140-440); RED BLOOD COUNT 3.95 X10'6 (4.70-6.10); RED CELL DISTRIBUTION WIDTH 12.6 % (11.5-14.5); WHITE BLOOD COUNT 7.9 X10'3 (4.5-11.0)
[2021-06-14 03:10] LABS: ALANINE AMINOTRANSFERASE 62 U/L (12-78); ALBUMIN 2.7 G/DL (3.4-5.0); ALBUMIN/GLOBULIN RATIO 0.6 (1.1-1.5); ALKALINE PHOSPHATASE 78 IU/L (46-116); ANION GAP 14 (8-16); ASPARTATE AMINO TRANSFERASE 51 U/L (10-37); BILIRUBIN,TOTAL 0.7 MG/DL (0.1-1.0); BLOOD UREA NITROGEN 27 MG/DL (7-18); BUN/CREATININE RATIO 32.5 (5.4-32.0); CALCIUM 8.7 MG/DL (8.5-10.1); CHLORIDE 107 MMOL/L (99-107); CREATININE 0.83 MG/DL (0.60-1.10); GLUCOSE 208 MG/DL (70-104); SODIUM 144 MMOL/L (135-145); TOTAL CARBON DIOXIDE 23.4 MMOL/L (24-32); TOTAL PROTEIN 6.9 G/DL (6.4-8.2); eGFR > 90 ML/MIN
[2021-06-14 03:12] LABS: D-DIMER 1.89 MG/L FEU (0-0.50)
[2021-06-14 03:13] LABS: POTASSIUM 2.9 MMOL/L (3.5-5.1)
[2021-06-14] MEDS ORDERED: magnesium oxide 400mg tablet PO ONE (03:15)
[2021-06-14] MEDS ORDERED: DEXAMETHASONE 6 MG TABLET PO ONE (03:20)
[2021-06-14] MEDS ORDERED: DEXAMETHASONE 6 MG TABLET PO SCH ×2 (03:20→08:00)
--- NOTE | 2021-06-14 03:21 | NUR ---
Dr. Hinkle made aware of patient potassium level of 2.9
[2021-06-14 03:43] LABS: CLARITY,URINE CLEAR (Clear); COLOR,URINE YELLOW (Yellow); GLUCOSE, URINE NEGATIVE (Neg); KETONES,URINE 40 mg/dl (Neg); LEUKOCYTE ESTERASE ,URINE NEGATIVE (Neg); NITRITES, URINE NEGATIVE (Neg); OCCULT BLOOD,URINE TRACE-INTACT (Neg); PH,URINE 7.5 (4.8-8.0); PROTEIN,URINE NEGATIVE (Neg)
[2021-06-14 03:47] LABS: UA COLLECTION TYPE URINAL
[2021-06-14 03:50] LABS: MAGNESIUM 1.9 MG/DL (1.5-2.4)
[2021-06-14 03:56] LABS: BACTERIA,URINE NONE SEEN /HPF (Neg); MUCUS STRANDS NONE SEEN /LPF (Neg); SQUAMOUS EPITHELIAL CELL,UR FEW /LPF (FEW); WBC,URINE NONE SEEN /HPF (0-4)
[2021-06-14] MEDS ORDERED: magnesium hydroxide 30ml (MOM) UD suspension PO PRN (04:00)
[2021-06-14] MEDS ORDERED: acetaminophen 325mg tablet PO PRN ×2 (04:00)
[2021-06-14] MEDS ORDERED: ondansetron/PF 4mg/2ml inj IV PRN (04:00)
[2021-06-14] MEDS ORDERED: potassium Cl 20 mEq SR tablet PO PRN (04:00)
[2021-06-14] MEDS ORDERED: ondansetron 4mg rapidly disintigrating tab PO PRN (04:00)
[2021-06-14] MEDS ORDERED: diphenhydrAMINE 25mg capsule PO PRN (04:00)
[2021-06-14] MEDS ORDERED: bisacodyl 10mg suppository rectal RC PRN (04:00)
[2021-06-14] MEDS ORDERED: morphine 2 MG/ML inj. syringe IV PRN ×2 (04:00)
[2021-06-14] MEDS ORDERED: diphenhydrAMINE 50 mg/ml inj IV PRN (04:00)
[2021-06-14] MEDS ORDERED: potassium Cl 40MEQ/1/2NS 520ml 520 ML IV PRN ×2 (04:00)
[2021-06-14] MEDS ORDERED: HYDROcodone/acetaminophen 10/325mg tab PO PRN (04:00)
[2021-06-14] MEDS ORDERED: HYDROmorphone inj. 0.5 MG/0.5 ML DISP.SYRIN IV PRN (04:00)
[2021-06-14] MEDS ORDERED: HYDROcodone/acetaminophen 5mg/325mg tablet PO PRN (04:00)
[2021-06-14] MEDS ORDERED: mag hydrox/Alum hydrox/simeth 30ml oral suspension PO PRN (04:00)
[2021-06-14] MEDS ORDERED: acetaminophen 650mg rectal suppository RC PRN (04:00)
[2021-06-14] MEDS ORDERED: ALBUTEROL INHALER 1 PUFF/90 MCG INHALER IH PRN (04:05)
[2021-06-14] MEDS ORDERED: REMDESIVIR INJ 200 MG in normal saline 100ml IV soln 60 ML IV ONE (04:05)
[2021-06-14 04:29] LABS: CREATINE KINASE 52 U/L (39-308); LIPASE 141 U/L (73-393)
[2021-06-14] MEDS: potassium Cl 20mEq in NS 1,000 ML IV SCH ×2 (04:36→14:45)
[2021-06-14] MEDS: potassium Cl 20 mEq SR tablet PO PRN ×2 (04:39→20:21)
--- NOTE | 2021-06-14 05:33 | NUR ---
PATIENT STATES THAT HE TAKES OXY AT HOME AND THAT HYDROCODONE WONT DO ANYTHING. MORPHINE WAS GIVEN AND PATIENT PAIN IS BETTER CONTROLLED.01/17.
[2021-06-14] MEDS: K and/or MAG REPLACEMENT MC SCH ×2 (08:00→20:00)
[2021-06-14] MEDS ORDERED: REMDESIVIR INJ 100 MG in normal saline 100ml IV soln 80 ML IV SCH (08:00)
[2021-06-14 08:35] LABS: PARTIAL THROMBOPLASTIN TIME 25 SECONDS (22-32); PHOSPHORUS 3.3 MG/DL (2.3-4.5)
[2021-06-14] MEDS: CefTRIAXone/D5W-Rocephin 1gm 50 ML IV SCH (08:48)
[2021-06-14] MEDS: heparin, porcine 5000 units/ml vial SQ SCH ×2 (08:49→20:41)
[2021-06-14] MEDS: docusate sod 100mg capsule PO SCH ×2 (08:49→20:00)
[2021-06-14] MEDS: dexamethasone inj 6 MG in normal saline 50ml IV soln 50 ML IV SCH ×2 (08:49→20:41)
[2021-06-14] MEDS: azithromycin/NS 500mg/250ml 250 ML IV SCH (09:30)
[2021-06-14] MEDS: lactobacillus rhamnosus 10,000 MMU CELLS/CAPSULE PO SCH (20:41)
[2021-06-14] MEDS ORDERED: temazepam 15mg capsule PO PRN (21:00)
[2021-06-14] MEDS ORDERED: oxyCODONE IR 5mg (immed. release) tablet PO ONE ×2 (23:15→23:50)
[2021-06-14] MEDS ORDERED: cyclobenzaprine 10mg tablet PO ONE ×2 (23:15→23:25)
[2021-06-14] MEDS ORDERED: traZODone 50mg tablet PO ONE (23:15)
[2021-06-14] MEDS ORDERED: METF-436 PO (23:25)
[2021-06-15] MEDS ORDERED: REMDESIVIR 100 MG in NS 100ml IVPB IV SCH (08:00)
[2021-06-15] MEDS: K and/or MAG REPLACEMENT MC SCH (08:00)
[2021-06-15] MEDS: lactobacillus rhamnosus 10,000 MMU CELLS/CAPSULE PO SCH (08:00)
[2021-06-15] MEDS: azithromycin/NS 500mg/250ml 250 ML IV SCH (08:00)
[2021-06-15 09:27] LABS: BASOPHILS % (AUTO) 0.5 % (0-1); EOSINOPHILS % (AUTO) 0.1 % (0-6); HEMATOCRIT 39.2 % (42.0-52.0); HEMOGLOBIN 13.5 g/dl (14.0-17.9); LYMPHOCYTES # (AUTO) 0.8 X10'3 (1.1-4.8); LYMPHOCYTES % (AUTO) 7.9 % (21-51); MEAN CORPUSCULAR HEMOGLOBIN 34.6 PG (27.0-31.0); MEAN CORPUSCULAR HGB CONC 34.4 g/dL (33.0-36.5); MEAN CORPUSCULAR VOLUME 100.4 FL (78-98); MEAN PLATELET VOLUME 7.5 FL (7.4-10.4); MONOCYTES # (AUTO) 0.6 X10'3 (0-0.9); MONOCYTES % (AUTO) 6.4 % (2-12); NEUTROPHILS # (AUTO) 8.5 X10'3 (1.8-7.7); NEUTROPHILS % (AUTO) 85.1 % (42-75); PLATELET COUNT 291 X10'3 (140-440); WHITE BLOOD COUNT 9.9 X10'3 (4.5-11.0)
[2021-06-15 09:39] LABS: ALANINE AMINOTRANSFERASE 46 U/L (12-78); ALBUMIN 2.5 G/DL (3.4-5.0); ALBUMIN/GLOBULIN RATIO 0.6 (1.1-1.5); ALKALINE PHOSPHATASE 73 IU/L (46-116); ANION GAP 8 (8-16); ASPARTATE AMINO TRANSFERASE 29 U/L (10-37); BILIRUBIN,TOTAL 0.5 MG/DL (0.1-1.0); BLOOD UREA NITROGEN 14 MG/DL (7-18); BUN/CREATININE RATIO 22.6 (5.4-32.0); CALCIUM 8.6 MG/DL (8.5-10.1); CHLORIDE 110 MMOL/L (99-107); CHOL/HDL RATIO 2.6 (0.00-4.99); CHOLESTEROL 82 MG/DL (0-200); CREATININE 0.62 MG/DL (0.60-1.10); GLUCOSE 163 MG/DL (70-104); HDL CHOLESTEROL 32 MG/DL (35-60); LDL CHOLESTEROL 38 MG/DL (50-100); POTASSIUM 4.5 MMOL/L (3.5-5.1); SODIUM 144 MMOL/L (135-145); TOTAL CARBON DIOXIDE 25.6 MMOL/L (24-32); TOTAL PROTEIN 6.7 G/DL (6.4-8.2); TRIGLYCERIDES 80 MG/DL (20-135); eGFR > 90 ML/MIN
[2021-06-15] MEDS: potassium Cl 20mEq in NS 1,000 ML IV SCH ×2 (10:00)
[2021-06-15] MEDS: dexamethasone inj 6 MG in normal saline 50ml IV soln 50 ML IV SCH (10:17)
[2021-06-15 10:22] LABS: PLATELET ESTIMATE NORMAL; POLYCHROMASIA 1+; TOTAL CELLS COUNTED 100
[2021-06-15 10:23] LABS: HYPERSEGMENTED NEUTROPHILS FEW; TOXIC GRANULATION 1+; TOXIC VACUOLATION 1+
[2021-06-15] MEDS: CefTRIAXone/D5W-Rocephin 1gm 50 ML IV SCH (11:47)
[2021-06-15] MEDS: docusate sod 100mg capsule PO SCH (11:48)
[2021-06-15] MEDS: heparin, porcine 5000 units/ml vial SQ SCH (11:48)
--- NOTE | 2021-06-15 12:10 | NUR ---
UP TO CHAIR TO CHANGE BED. 02 SAT 88 ON 4 L.MIN NC. 02 INCREASE TO 6 L/MIN 02 SATS 98%. PT STATES, FEEL BETTER.
[2021-06-15] MEDS ORDERED: AZIT500T2 PO (12:11)
[2021-06-15] MEDS ORDERED: DEXA6TAB6 PO (12:11)
--- NOTE | 2021-06-15 12:31 | NUR ---
K IS 4.5 IV SOLN WITH K DISCONTINUED
[2021-06-15 13:01] VITALS: BP 169/90
== END 2021-06-15 13:45 | disposition home or self-care (01) | DRG 177 ==
LOC: ER 01:10 → ED HOLD 04:05
PROVIDERS: ADMIT Family Medicine; ATTEND Internal Medicine
PROC: XW033E5 Introduction of Remdesivir Anti-infective into Peripheral Vein, Percutaneous Approach, New Technology Group 5 (ICD-10-PCS; principal; 2021-06-14)
DX: U07.1 COVID-19 (principal); J12.82 Pneumonia due to coronavirus disease 2019; J96.01 Acute respiratory failure with hypoxia; I50.32 Chronic diastolic (congestive) heart failure; E78.00 Pure hypercholesterolemia, unspecified; E78.5 Hyperlipidemia, unspecified; E86.0 Dehydration; E87.6 Hypokalemia; F32.9 Major depressive disorder, single episode, unspecified; F41.9 Anxiety disorder, unspecified; G47.33 Obstructive sleep apnea (adult) (pediatric); G89.4 Chronic pain syndrome; I11.0 Hypertensive heart disease with heart failure; G47.30 Sleep apnea, unspecified; I25.10 Atherosclerotic heart disease of native coronary artery without angina pectoris; R82.4 Acetonuria; D64.9 Anemia, unspecified; I48.91 Unspecified atrial fibrillation; K21.9 Gastro-esophageal reflux disease without esophagitis; M10.9 Gout, unspecified; Z79.02 Long term (current) use of antithrombotics/antiplatelets; Z79.84 Long term (current) use of oral hypoglycemic drugs; Z79.891 Long term (current) use of opiate analgesic; Z87.11 Personal history of peptic ulcer disease; Z95.1 Presence of aortocoronary bypass graft; Z98.61 Coronary angioplasty status; Z88.8 Allergy status to other drugs, medicaments and biological substances; Z79.899 Other long term (current) drug therapy
CPT/HCPCS: 36415; 71045; 80053; 80061; 81001; 82550; 83036; 83605; 83690; 83735; 83880; 84100; 84132; 84145; 84484; 85007; 85025; 85379; 85610; 85730; 87040; 87635; 93005; 94760; 99291; C9803; G0378; J0456; J0696; J1100; J1644; J2270; J2405; J3480; J8540

== ENCOUNTER 2021-07-17 16:08 | Inpatient (IN) | payer OTHER, MEDICARE ==
[~2021-07-17] VITALS: Ht 165.1 cm; Wt 85.0 kg
[~2021-07-17 16:08] MED LIST changes: -CEPH-572 PO; +DEXA6TAB6 PO; +METF-436 PO
[2021-07-17 19:57] LABS: CLARITY,URINE CLEAR (Clear); COLOR,URINE YELLOW (Yellow); UA COLLECTION TYPE URINAL
[2021-07-17 19:57] LABS: BASOPHILS % (AUTO) 0.5 % (0-1); EOSINOPHILS # (AUTO) 0.1 X10'3 (0-0.9); EOSINOPHILS % (AUTO) 2.3 % (0-6); HEMATOCRIT 30.5 % (42.0-52.0); HEMOGLOBIN 10.7 g/dl (14.0-17.9); LYMPHOCYTES # (AUTO) 1.2 X10'3 (1.1-4.8); MEAN CORPUSCULAR HEMOGLOBIN 35.3 PG (27.0-31.0); MEAN CORPUSCULAR HGB CONC 34.9 g/dL (33.0-36.5); MEAN CORPUSCULAR VOLUME 101.1 FL (78-98); MEAN PLATELET VOLUME 7.4 FL (7.4-10.4); MONOCYTES # (AUTO) 0.5 X10'3 (0-0.9); MONOCYTES % (AUTO) 10.5 % (2-12); NEUTROPHILS # (AUTO) 3.2 X10'3 (1.8-7.7); NEUTROPHILS % (AUTO) 63.7 % (42-75); PLATELET COUNT 247 X10'3 (140-440); RED BLOOD COUNT 3.02 X10'6 (4.70-6.10); RED CELL DISTRIBUTION WIDTH 14.4 % (11.5-14.5); WHITE BLOOD COUNT 5.1 X10'3 (4.5-11.0)
[2021-07-17 19:58] LABS: GLUCOSE, URINE NEGATIVE (Neg); KETONES,URINE NEGATIVE (Neg); LEUKOCYTE ESTERASE ,URINE NEGATIVE (Neg); NITRITES, URINE NEGATIVE (Neg); OCCULT BLOOD,URINE NEGATIVE (Neg); PROTEIN,URINE NEGATIVE (Neg); UROBILINOGEN,URINE 0.2 E.U/dL (0.2-1.0)
[2021-07-17 20:08] LABS: PARTIAL THROMBOPLASTIN TIME 29 SECONDS (22-32)
[2021-07-17 20:11] LABS: ALANINE AMINOTRANSFERASE 31 U/L (12-78); ALBUMIN/GLOBULIN RATIO 0.8 (1.1-1.5); ALKALINE PHOSPHATASE 75 IU/L (46-116); ANION GAP 4 (8-16); ASPARTATE AMINO TRANSFERASE 26 U/L (10-37); BILIRUBIN,TOTAL 0.3 MG/DL (0.1-1.0); BLOOD UREA NITROGEN 23 MG/DL (7-18); BUN/CREATININE RATIO 38.3 (5.4-32.0); CALCIUM 9.3 MG/DL (8.5-10.1); CHLORIDE 108 MMOL/L (99-107); GLUCOSE 104 MG/DL (70-104); POTASSIUM 4.3 MMOL/L (3.5-5.1); SODIUM 146 MMOL/L (135-145); TOTAL CARBON DIOXIDE 33.7 MMOL/L (24-32); TOTAL PROTEIN 6.7 G/DL (6.4-8.2); eGFR > 90 ML/MIN
[2021-07-17 20:47] LABS: D-DIMER 0.98 MG/L FEU (0-0.50)
[2021-07-17] MEDS ORDERED: iohexol 350MG/ML 100ml bottle IV ONE (20:54)
[2021-07-17] MEDS: MESSAGE TO NURSING PO SCH (21:00)
[2021-07-17] MEDS ORDERED: ROSU20TA2 PO (23:49)
--- NOTE | 2021-07-17 23:51 | NUR ---
Pt SITTING AT BEDSIDE SPEAKING TO DR GREEN.
[2021-07-17] MEDS ORDERED: OXYC-150 PO (23:53)
[2021-07-17] MEDS ORDERED: CEPH250T PO (23:56)
[2021-07-18] MEDS ORDERED: ondansetron/PF 4mg/2ml inj IV PRN (00:25)
[2021-07-18] MEDS ORDERED: potassium Cl 20 mEq SR tablet PO PRN ×2 (00:25)
[2021-07-18] MEDS ORDERED: mag hydrox/Alum hydrox/simeth 30ml oral suspension PO PRN (00:25)
[2021-07-18] MEDS ORDERED: potassium Cl 40MEQ/1/2NS 520ml 520 ML IV PRN ×2 (00:25)
[2021-07-18] MEDS ORDERED: cyclobenzaprine 10mg tablet PO PRN (00:25)
[2021-07-18] MEDS ORDERED: magnesium hydroxide 30ml (MOM) UD suspension PO PRN (00:25)
[2021-07-18] MEDS ORDERED: oxyCODONE/APAP 10/325mg tablet PO PRN (00:25)
[2021-07-18] MEDS ORDERED: acetaminophen 325mg tablet PO PRN (00:25)
[2021-07-18] MEDS: cephalexin 500mg capsule PO SCH ×4 (02:02→19:34)
[2021-07-18] MEDS ORDERED: OMEG1CAP13 PO (04:12)
[2021-07-18] MEDS ORDERED: FIBER PO (04:14)
[2021-07-18] MEDS ORDERED: CYAN100097 PO (04:14)
[2021-07-18] MEDS ORDERED: DICL100G30 TP (04:17)
[2021-07-18] MEDS ORDERED: FLUT1BLS10 INH (04:18)
[2021-07-18] MEDS ORDERED: CHOL100025 PO (04:23)
[2021-07-18] MEDS ORDERED: ALBU8.5H17 IH (04:27)
[2021-07-18] MEDS ORDERED: ALBU2.5V13 NEB (04:31)
[2021-07-18] MEDS ORDERED: MUPI22OI30 TP (04:34)
[2021-07-18] MEDS: docusate sod 100mg capsule PO SCH ×2 (07:04→19:35)
[2021-07-18] MEDS: OMEGA-3/DHA/EPA/FISH OIL 1 EACH CAPSULE.DR PO SCH ×2 (07:17→19:34)
[2021-07-18] MEDS: gabapentin 400mg capsule PO SCH ×3 (07:17→19:34)
[2021-07-18] MEDS: clopidogrel 75mg tablet PO SCH (07:17)
[2021-07-18] MEDS: pantoprazole 40mg Tablet.DR PO SCH (07:17)
[2021-07-18] MEDS: allopurinol 100mg tablet PO SCH (07:17)
[2021-07-18] MEDS: sertraline 50mg tablet PO SCH (07:18)
[2021-07-18] MEDS: metoprolol tartrate 12.5mg (1/2 tablet) PO SCH ×2 (07:18→19:38)
[2021-07-18] MEDS: ROSUVASTATIN CALCIUM 5 MG TABLET PO SCH (07:19)
[2021-07-18] MEDS: heparin, porcine 5000 units/ml vial SQ SCH ×2 (07:21→19:39)
[2021-07-18] MEDS ORDERED: PERFLUTREN PROTEIN-A MICROSPHR (Optison) 0.22 MG/ML 3ML VIAL IV ONE (08:00)
[2021-07-18] MEDS: K and/or MAG REPLACEMENT MC SCH ×2 (08:00→20:00)
--- NOTE | 2021-07-18 12:36 | NUR ---
PHYSICAL THERAPY AT BEDSIDE TO ZULLY PT.
--- NOTE | 2021-07-18 12:48 | NUR ---
PT HERE ASSESSING PT.
--- NOTE | 2021-07-18 13:18 | NUR ---
Attempted to call report at ext [phone], Iraida JIANG will call back
[2021-07-18 13:28] LABS: HEMOGLOBIN A1C 6.8 % (4.5-6.2)
--- NOTE | 2021-07-18 13:40 | NUR ---
Report called to Iraida ext [phone]
[2021-07-18 16:35] VITALS: BP 123/60
--- NOTE | 2021-07-18 17:10 | NUR ---
PAGER ID: [phone] MESSAGE: Tyree Monteiro [phone] Do you want to iniate hyperglycemia protocol with 6.8 AIC? Iraida [phone]
[2021-07-18] MEDS ORDERED: dextrose 50%-water 50ml dispensing syringe IV PRN ×2 (17:20)
[2021-07-18] MEDS ORDERED: dextrose ORAL solution 15 GM/59 ML bottle PO PRN ×2 (17:20)
[2021-07-18] MEDS ORDERED: insulin Lispro (HumaLOG) vial - multi-dose SQ SCH (17:20)
[2021-07-18] MEDS ORDERED: glucagon, human recombinant 1mg kit SUBCUT PRN (17:20)
[2021-07-18] MEDS ORDERED: MESSAGE TO PHARMACY PO ONE (17:20)
--- NOTE | 2021-07-18 18:24 | NUR ---
GAVE REPORT TO AMANDO JIANG AND SHIRLEY LAYNE.
--- NOTE | 2021-07-18 18:41 | NUR ---
Patient in room [facility]. I have received report from LUCY JIANG and had the opportunity to ask questions and assume patient care. Addendum: 07/18/21 at 1841 by Dora Hansen RN Amended: Links added.
[2021-07-18] MEDS: ferrous sulfate 325mg tablet PO SCH (19:35)
[2021-07-18] MEDS ORDERED: ALBUTEROL INHALER 1 PUFF/90 MCG INHALER IH SCH (20:00)
[2021-07-18] MEDS: MESSAGE TO NURSING PO SCH (21:00)
[2021-07-18] MEDS ORDERED: insulin glargine (Lantus) pen - multi-dose SQ SCH (21:00)
[2021-07-18 23:00] VITALS: BP 102/57
[2021-07-19] MEDS: cephalexin 500mg capsule PO SCH ×3 (02:43→15:17)
--- NOTE | 2021-07-19 04:51 | NUR ---
Student documentation: I have reviewed and agree with all interventions, assessments performed and documented by CARLOS ENRIQUE HODGES RN STUDENT.Student Medication Administration: For this medication-pass time frame, all medication were reviewed, dispensed, administered and documented per hospital policy by CARLOS ENRIQUE HODGES RN STUDENT. Addendum: 07/19/21 at 0453 by Dora Hansen RN Amended: Links added.
--- NOTE | 2021-07-19 06:10 | NUR ---
Student documentation: I have reviewed and agree with all interventions, assessments performed and documented by CARLOS ENRIQUE HODGES.Student Medication Administration: For this medication-pass time frame, all medication were reviewed, dispensed, administered and documented per hospital policy by CARLOS ENRIQUE HODGES RN STUDENT. Addendum: 07/19/21 at 0613 by Dora Hansen RN Amended: Links added.
--- NOTE | 2021-07-19 06:30 | NUR ---
Problems reprioritized. Patient report given, questions answered & plan of care reviewed with MATA JIANG. Addendum: 07/19/21 at 0631 by Dora Hansen RN Amended: Links added.
--- NOTE | 2021-07-19 06:51 | NUR ---
PAGED RT REGARDING MISSED BREATHING TX
[2021-07-19 06:54] VITALS: BP 135/73
[2021-07-19 07:16] LABS: ALANINE AMINOTRANSFERASE 28 U/L (12-78); ALBUMIN/GLOBULIN RATIO 0.8 (1.1-1.5); ALKALINE PHOSPHATASE 77 IU/L (46-116); ANION GAP 8 (8-16); ASPARTATE AMINO TRANSFERASE 21 U/L (10-37); BILIRUBIN,TOTAL 0.3 MG/DL (0.1-1.0); BLOOD UREA NITROGEN 13 MG/DL (7-18); BUN/CREATININE RATIO 23.2 (5.4-32.0); CALCIUM 9.5 MG/DL (8.5-10.1); CHLORIDE 110 MMOL/L (99-107); CHOL/HDL RATIO 2.3 (0.00-4.99); CHOLESTEROL 108 MG/DL (0-200); CREATININE 0.56 MG/DL (0.60-1.10); GLUCOSE 121 MG/DL (70-104); HDL CHOLESTEROL 48 MG/DL (35-60); LDL CHOLESTEROL 47 MG/DL (50-100); POTASSIUM 3.6 MMOL/L (3.5-5.1); SODIUM 149 MMOL/L (135-145); TOTAL CARBON DIOXIDE 31.1 MMOL/L (24-32); TOTAL PROTEIN 6.7 G/DL (6.4-8.2); TRIGLYCERIDES 87 MG/DL (20-135); eGFR > 90 ML/MIN
[2021-07-19 07:35] LABS: BASOPHILS # (AUTO) 0.1 X10'3 (0-0.2); BASOPHILS % (AUTO) 1.8 % (0-1); EOSINOPHILS # (AUTO) 0.1 X10'3 (0-0.9); EOSINOPHILS % (AUTO) 1.5 % (0-6); HEMATOCRIT 34.6 % (42.0-52.0); LYMPHOCYTES # (AUTO) 1.3 X10'3 (1.1-4.8); LYMPHOCYTES % (AUTO) 27.4 % (21-51); MEAN CORPUSCULAR HEMOGLOBIN 34.8 PG (27.0-31.0); MEAN CORPUSCULAR HGB CONC 34.6 g/dL (33.0-36.5); MEAN CORPUSCULAR VOLUME 100.7 FL (78-98); MEAN PLATELET VOLUME 7.9 FL (7.4-10.4); MONOCYTES # (AUTO) 0.6 X10'3 (0-0.9); MONOCYTES % (AUTO) 13.7 % (2-12); NEUTROPHILS # (AUTO) 2.6 X10'3 (1.8-7.7); NEUTROPHILS % (AUTO) 55.6 % (42-75); PLATELET COUNT 229 X10'3 (140-440); RED BLOOD COUNT 3.44 X10'6 (4.70-6.10); RED CELL DISTRIBUTION WIDTH 14.2 % (11.5-14.5); WHITE BLOOD COUNT 4.6 X10'3 (4.5-11.0)
[2021-07-19] MEDS: K and/or MAG REPLACEMENT MC SCH (08:00)
[2021-07-19] MEDS: allopurinol 100mg tablet PO SCH (08:29)
[2021-07-19] MEDS: gabapentin 400mg capsule PO SCH ×2 (08:29→15:17)
[2021-07-19] MEDS: clopidogrel 75mg tablet PO SCH (08:30)
[2021-07-19] MEDS: sertraline 50mg tablet PO SCH (08:30)
[2021-07-19] MEDS: pantoprazole 40mg Tablet.DR PO SCH (08:30)
[2021-07-19] MEDS: ferrous sulfate 325mg tablet PO SCH (08:30)
[2021-07-19] MEDS: docusate sod 100mg capsule PO SCH (08:30)
[2021-07-19] MEDS: heparin, porcine 5000 units/ml vial SQ SCH (08:31)
[2021-07-19] MEDS: ROSUVASTATIN CALCIUM 5 MG TABLET PO SCH (08:31)
[2021-07-19] MEDS: OMEGA-3/DHA/EPA/FISH OIL 1 EACH CAPSULE.DR PO SCH (08:31)
[2021-07-19] MEDS: metoprolol tartrate 12.5mg (1/2 tablet) PO SCH (08:31)
--- NOTE | 2021-07-19 10:31 | NUR ---
Per pt. he has a walker at home but just doesn't use it and prefers to use his cane.
[2021-07-19 12:30] VITALS: BP 130/69
--- NOTE | 2021-07-19 12:39 | NUR ---
Paged RT . Albuterol inhaler in pt. specific container and is ordered but is not being given or administered. Spoke with RT earlier and she states she was in the middle of a rapid and she thinks pharmacy needs to approve before administration?
[2021-07-19] MEDS ORDERED: albuterol 2.5 MG/3 ML nebule NEB SCH (12:43)
--- NOTE | 2021-07-19 12:47 | NUR ---
Called pharmacy to switch inhaler to nebulizer for RT. RT notified.
[2021-07-19] MEDS ORDERED: AZIT-63 PO (12:57)
--- NOTE | 2021-07-19 14:44 | NUR ---
Diabetes consult: re "New DM" A1C 6.8 Pt seen at bedside and states that [facility] and currently works with a Dietitian. Provided pt w/ written and verbal DM education w/ RD info. Pt receptive of information. Will continue to monitor. Addendum: 07/19/21 at [address] Amended: Links added.
--- NOTE | 2021-07-19 16:00 | NUR ---
Reviewed discharge paperwork and medications with pt. ATB ordered for bacterial PNA. Pt. knows where to p/u medications. IV DC'd cannula intact. Pt. knows to f/u with PCP. picked him up downstairs to go home.
[2021-07-20] MEDS ORDERED: metFORMIN 500mg tablet PO SCH (08:00)
== END 2021-07-19 16:13 | disposition home or self-care (01) | DRG 554 ==
LOC: ER 16:08 → ED HOLD 07-18 00:24 → SUR 3N 07-18 13:55
PROVIDERS: ADMIT Internal Medicine; ATTEND Internal Medicine
PROC: B32T1ZZ Computerized Tomography (CT Scan) of Left Pulmonary Artery using Low Osmolar Contrast (ICD-10-PCS; principal; 2021-07-17)
PROC: B3201ZZ Computerized Tomography (CT Scan) of Thoracic Aorta using Low Osmolar Contrast (ICD-10-PCS; 2021-07-17)
PROC: B32S1ZZ Computerized Tomography (CT Scan) of Right Pulmonary Artery using Low Osmolar Contrast (ICD-10-PCS; 2021-07-17)
DX: M19.012 Primary osteoarthritis, left shoulder (principal); E03.9 Hypothyroidism, unspecified; E11.9 Type 2 diabetes mellitus without complications; E78.00 Pure hypercholesterolemia, unspecified; G47.33 Obstructive sleep apnea (adult) (pediatric); K21.9 Gastro-esophageal reflux disease without esophagitis; M17.12 Unilateral primary osteoarthritis, left knee; F32.A Depression, unspecified; M47.9 Spondylosis, unspecified; R29.704 NIHSS score 4; G89.29 Other chronic pain; I10 Essential (primary) hypertension; J84.10 Pulmonary fibrosis, unspecified; D64.9 Anemia, unspecified; I25.10 Atherosclerotic heart disease of native coronary artery without angina pectoris; Z79.02 Long term (current) use of antithrombotics/antiplatelets; Z87.11 Personal history of peptic ulcer disease; Z86.16 Personal history of COVID-19; Z87.442 Personal history of urinary calculi; Z87.891 Personal history of nicotine dependence; Z95.1 Presence of aortocoronary bypass graft; Z95.5 Presence of coronary angioplasty implant and graft; Z99.81 Dependence on supplemental oxygen; Z88.5 Allergy status to narcotic agent; Z79.899 Other long term (current) drug therapy
CPT/HCPCS: 36415; 70450; 70551; 71045; 71275; 80053; 80061; 81003; 82948; 83036; 83880; 84145; 84484; 85025; 85379; 85610; 85730; 87081; 93005; 93306; 97161; 97530; 99285; G0378; J1644; J1815; Q9967

== ENCOUNTER 2024-07-30 06:01 | Day surgery (SDC) | payer MEDICARE, OTHER ==
[2024-07-26 15:11] LABS: BASOPHILS % (AUTO) 0.4 % (0-1); EOSINOPHILS # (AUTO) 0.1 X10'3 (0-0.9); LYMPHOCYTES # (AUTO) 1.5 X10'3 (1.1-4.8); LYMPHOCYTES % (AUTO) 20.7 % (21-51); MEAN CORPUSCULAR HEMOGLOBIN 34.7 PG (27.0-31.0); MEAN CORPUSCULAR HGB CONC 33.2 g/dL (33.0-36.5); MEAN CORPUSCULAR VOLUME 104.7 FL (78-98); MEAN PLATELET VOLUME 7.9 FL (7.4-10.4); MONOCYTES # (AUTO) 0.6 X10'3 (0-0.9); MONOCYTES % (AUTO) 8.6 % (2-12); NEUTROPHILS % (AUTO) 68.3 % (42-75); PRE OP HEMATOCRIT 40.2 % (42.0-52.0); PRE OP HEMOGLOBIN 13.3 g/dL (14.0-17.9); PRE OP PLATELET COUNT 134 X10'3 (140-440); PRE OP WHITE BLOOD COUNT 7.3 10'3 (4.8-10.8); RED BLOOD COUNT 3.83 X10'6 (4.70-6.10); RED CELL DISTRIBUTION WIDTH 14.2 % (11.5-14.5)
[2024-07-26 15:18] LABS: ALBUMIN 3.6 G/DL (3.4-5.0); ALBUMIN/GLOBULIN RATIO 1.1 (1.1-1.5); ALKALINE PHOSPHATASE 43 IU/L (46-116); BLOOD UREA NITROGEN 23 MG/DL (7-18); BUN/CREATININE RATIO 34.8 (10.0-20.0); CALCIUM 9.3 MG/DL (8.5-10.1); CHLORIDE 106 MMOL/L (99-107); CREATININE 0.66 MG/DL (0.60-1.10); PRE OP ALT 27 U/L (30-65); PRE OP ANION GAP 7 (8-16); PRE OP AST 19 U/L (10-37); PRE OP BILIRUB, TOTAL 0.3 MG/DL (0.0-1.0); PRE OP GLUCOSE 115 MG/DL (70-104); PRE OP POTASSIUM 4.3 MMOL/L (3.4-5.1); PRE OP SODIUM 140 MMOL/L (135-145); TOTAL CARBON DIOXIDE 26.9 MMOL/L (24-32); TOTAL PROTEIN 6.9 G/DL (6.4-8.2); eGFR > 90 ML/MIN
[~2024-07-30] VITALS: Ht 165.1 cm; Wt 84.3 kg
[2024-07-30] VITALS (8 sets, daily range): BP systolic 97–117; BP diastolic 45–79; PULSE 42–65; RESP 9–18; TEMP 97.4; O2SAT 82–99
[2024-07-30] MEDS: DOCUMENT DATE & TIME OF BETA-BLOCKER PO ONE (04:30)
[~2024-07-30 06:01] MED LIST changes: +ALBU8.5H17 IH; -ALPR-304 PO; -BUPR100T16 PO; +CEPH250T PO; +CHLO473M2 PO; +CHOL100025 PO; +CLIN60LO2 TOP; -DEXA6TAB6 PO; +FERR325T28 PO; +FIBER PO; +FLO0.4C PO; -FURO40TA4 PO; -GLUC-183 PO; -HYDR2TAB28 PO; +HYDROCORTISONE; +LIDO15CR11 TOP; +LOSA-415 PO; +LYTE60SP; -MAGN400C PO; -OMEG-156 PO; +OMEG-166 PO; -OSC500T PO; +OXYC-150 PO; -POTA10TA15 PO; -PSYL0.524 PO; +ROSU20TA2 PO; +TEST5GEL18 TOP; +TUMERIC; +UREA113.
[2024-07-30] MEDS ORDERED: BUPIVAcaine 2.5mg/ml inj 50ml vial (contains preservative) ONE (07:03)
[2024-07-30] MEDS: cefazolin 2gm/D5W 100mL 100 ML IV ONE (07:41)
[2024-07-30] MEDS: famotidine 20mg tablet PO ONE (07:41)
[2024-07-30] MEDS: ringers solution, lacted 1,000 ML IV SCH (07:42)
[2024-07-30] MEDS ORDERED: ringers solution, lacted 1,000 ML IV SCH (07:45)
[2024-07-30] MEDS ORDERED: morphine 2 MG/ML inj. syringe IV PRN (07:45)
[2024-07-30] MEDS ORDERED: ondansetron/PF 4mg/2ml inj IV PRN (07:45)
[2024-07-30] MEDS ORDERED: hydrALAZINE 20mg/ml inj. IV PRN (07:45)
[2024-07-30] MEDS ORDERED: morphine 4 MG/ML inj SYRINge IV PRN (07:45)
[2024-07-30] MEDS ORDERED: fentaNYL/PF 50MCG/1 ML 2ML syringe IV PRN ×2 (07:45)
[2024-07-30] MEDS ORDERED: labetalol 20mg/4ml (5mg/ml) syringe IV PRN (07:45)
[2024-07-30] MEDS ORDERED: MIDAZolam 1 MG/ML 5ML VIAL ONE (07:59)
[2024-07-30] MEDS ORDERED: ROPIVAcaine 0.5% (5mg/ml) 30ml vial ONE (07:59)
[2024-07-30] MEDS ORDERED: fentaNYL/PF 50MCG/1 ML 2ML syringe ONE (07:59)
[2024-07-30] MEDS ORDERED: LIDOcaine 0.5% (5mg/ml) 50ml vial ONE (08:11)
[2024-07-30] MEDS ORDERED: acetaminophen 1,000mg/100ml IV 100 ML IV ONE (08:29)
[2024-07-30] MEDS: BUPIVAcaine 2.5mg/ml inj 50ml vial (contains preservative) SQ ONE (08:36)
== END 2024-07-30 12:37 | disposition home or self-care (01) ==
LOC: PAS 06:01
PROVIDERS: ATTEND Orthopaedic Surgery Hand Surgery
DX: M19.032 Primary osteoarthritis, left wrist (principal); R94.31 Abnormal electrocardiogram [ECG] [EKG]; I10 Essential (primary) hypertension; E11.9 Type 2 diabetes mellitus without complications; E78.5 Hyperlipidemia, unspecified; J44.9 Chronic obstructive pulmonary disease, unspecified; F41.9 Anxiety disorder, unspecified; G47.30 Sleep apnea, unspecified; I25.2 Old myocardial infarction; M19.90 Unspecified osteoarthritis, unspecified site; Z87.891 Personal history of nicotine dependence; Z79.02 Long term (current) use of antithrombotics/antiplatelets; Z79.891 Long term (current) use of opiate analgesic; Z79.899 Other long term (current) drug therapy; Z95.818 Presence of other cardiac implants and grafts; Z96.612 Presence of left artificial shoulder joint; Z98.890 Other specified postprocedural states; Z88.8 Allergy status to other drugs, medicaments and biological substances
CPT/HCPCS: 25215; 36415; 80053; 82948; 85025; 93005; A4215; A4618; A6222; A6402; A6449; A7000; J0131; J0690; J2001; J2250; J3010; J3490; J7030; J7120; Z7506; Z7512; Z7610; J2795